=== PATIENT | female | born 1960 | race African-American/Black ===

== ENCOUNTER → 2016-04-29 | Outpatient (CLI) | payer OTHER, BC ==
[2015-12-08 12:33] VITALS: BP 121/67
[~2016-04-29] VITALS: Ht 167.6 cm; Wt 95.3 kg
[~2016-04-29] MED LIST: ATEN50TA PO; AZIT250T PO; CHOL100013 PO; HYDR12.58 PO; SINCALIDE 1.91 MCG in IV NORMAL SALINE 50ML 30 ML IV ONE; TRAM50TA PO; TRAZ100T12 PO
--- NOTE | 2016-04-29 09:57 | RAD ---
Indication chronic right upper quadrant pain. Hepatobiliary scan was performed. 5.5 mCi of technetium labeled Choletec was administered. 1.9 mcg of Kinevac was diluted in saline and administered over several minutes. Following the Kinevac administration the estimated gallbladder ejection fraction calculation was made. There is normal uptake of the radiopharmaceutical in the liver. Activity is seen early in the biliary system and gallbladder. Following the Kinevac administration the estimated gallbladder ejection fraction is in excess of 90%. IMPRESSION: Normal study
== END | disposition home or self-care (01) ==
LOC: NM 06:51
PROVIDERS: ATTEND Internal Medicine Gastroenterology
DX: R10.11 Right upper quadrant pain (principal); I10 Essential (primary) hypertension; Z86.2 Personal history of diseases of the blood and blood-forming organs and certain disorders involving the immune mechanism
CPT/HCPCS: 78226; A9537; J2805

== ENCOUNTER 2016-10-08 10:36 | Emergency (ER) | payer OTHER, BC ==
[~2016-10-08] VITALS: Ht 167.6 cm; Wt 104.3 kg
[~2016-10-08 10:36] MED LIST changes: +DOCU-109 PO; +HYDR-971 PO; -SINCALIDE 1.91 MCG in IV NORMAL SALINE 50ML 30 ML IV ONE
--- NOTE | 2016-10-08 11:09 | PHYS DOC ---
Past Medical History Past Medical History: Hypertension Past Surgical History: , Hysterectomy Additional Past Surgical Histo: cardiac cath Alcohol Use: None Drug Use: None Adult General Chief Complaint Chief Complaint: UPPER EXTREMITY PAIN HPI HPI Patient is a 56 year old female presents to the emergency department with complaints of fleeting chest pain for 5 seconds, 3 hours [employer], this morning and left upper extremity and jaw numbness. Patient denies headache. Denies nausea, vomiting. Denies diaphoresis. She states she has had pain similar to this in the past and 1 year ago had a cardiac catheter that was "clean". Review of Systems Review of Systems Constitutional: Denies fever or chills [] Eyes: Denies change in visual acuity, redness, or eye pain [] HENT: Denies nasal congestion or sore throat, left jaw pain [] Respiratory: Denies cough or shortness of breath [] Cardiovascular: Chest pain GI: Denies abdominal pain, nausea, vomiting, bloody stools or diarrhea [] : Denies dysuria or hematuria [] Musculoskeletal: left UE numbness [] Integument: Denies rash or skin lesions [] Neurologic: Denies headache, focal weakness or sensory changes [] Endocrine: Denies polyuria or polydipsia [] Current Medications Current Medications Current Medications Medications (Trade) Dose Ordered Sig/Pravin Start Time Stop Time Status Last Admin Dose Admin Aspirin (Children'S Aspirin) 324 mg 1X ONCE 10/08/16 11:45 10/08/16 11:46 DC 10/08/16 11:41 324 MG Allergies Allergies Allergies Coded Allergies Type Severity Reaction Last Updated Verified No Known Drug Allergies 05/17/16 No Physical Exam Physical Exam Constitutional: Well developed, well nourished, no acute distress, non-toxic appearance. [] HENT: Normocephalic, atraumatic, bilateral external ears normal, oropharynx moist, no oral exudates, nose normal. [] Eyes: PERRLA, EOMI, conjunctiva normal, no discharge. [] Neck: Normal range of motion, no tenderness, supple, no stridor. [] Cardiovascular:Heart rate regular rhythm, no murmur, no JVD, no edema[] Lungs & Thorax: Bilateral breath sounds clear to auscultation [] Abdomen: Bowel sounds normal, soft, no tenderness, no masses, no pulsatile masses. [] Skin: Warm, dry, no erythema, no rash. [] Back: No tenderness, no CVA tenderness. [] Extremities: No tenderness, no cyanosis, no clubbing, ROM intact, no edema. [] Neurologic: Alert and oriented X 3, normal motor function, normal sensory function, no focal deficits noted. Cranial nerves II through XII grossly intact. Negative Romberg. Psychologic: Affect normal, judgement normal, mood normal. Current Patient Data Vital Signs Vital Signs Date Time Temp Pulse Resp B/P (MAP) Pulse Ox O2 Delivery O2 Flow Rate FiO2 10/08/16 11:42 72 20 145/67 (93) 98 10/08/16 10:51 98.6 Room Air 98.6 Lab Values Laboratory Tests Test 10/08/16 11:52 10/08/16 11:55 10/08/16 12:09 POC Troponin I 0.00 ng/ml (<0.08) White Blood Count 5.6 x10^3/uL (4.0-11.0) Red Blood Count 4.16 x10^6/uL (3.50-5.40) Hemoglobin 11.8 g/dL (12.0-15.5) L Hematocrit 35.1 % (36.0-47.0) L Mean Corpuscular Volume 84 fL (79-100) Mean Corpuscular Hemoglobin 28 pg (25-35) Mean Corpuscular Hemoglobin Concent 34 g/dL (31-37) Red Cell Distribution Width 13.7 % (11.5-14.5) Platelet Count 243 x10^3/uL (140-400) Neutrophils (%) (Auto) 53 % (31-73) Lymphocytes (%) (Auto) 35 % (24-48) Monocytes (%) (Auto) 9 % (0-9) Eosinophils (%) (Auto) 3 % (0-3) Basophils (%) (Auto) 1 % (0-3) Neutrophils # (Auto) 2.9 x10^3uL (1.8-7.7) Lymphocytes # (Auto) 1.9 x10^3/uL (1.0-4.8) Monocytes # (Auto) 0.5 x10^3/uL (0.0-1.1) Eosinophils # (Auto) 0.1 x10^3/uL (0.0-0.7) Basophils # (Auto) 0.0 x10^3/uL (0.0-0.2) Sodium Level 142 mmol/L (136-145) Potassium Level 3.9 mmol/L (3.5-5.1) Chloride Level 104 mmol/L (98-107) Carbon Dioxide Level 31 mmol/L (21-32) Anion Gap 7 (6-14) Blood Urea Nitrogen 16 mg/dL (7-20) Creatinine 0.9 mg/dL (0.6-1.0) Estimated GFR (Cockcroft-Gault) 78.7 BUN/Creatinine Ratio 18 (6-20) Glucose Level 97 mg/dL (70-99) Calcium Level 9.5 mg/dL (8.5-10.1) Total Bilirubin 0.3 mg/dL (0.2-1.0) Aspartate Amino Transferase (AST) 16 U/L (15-37) Alanine Aminotransferase (ALT) 22 U/L (14-59) Alkaline Phosphatase 85 U/L (46-116) Creatine Kinase 14 U/L (26-192) L Creatine Kinase MB (Mass) 0.9 ng/mL (0.0-3.6) Creatine Kinase MB Relative Index % (0-4) Total Protein 7.3 g/dL (6.4-8.2) Albumin 3.9 g/dL (3.4-5.0) Albumin/Globulin Ratio 1.1 (1.0-1.7) Urine Collection Type Unknown Urine Color Yellow Urine Clarity Clear Urine pH 6.0 Urine Specific [place] 1.010 Urine Protein Negative mg/dL (NEG-TRACE) Urine Glucose (UA) Negative mg/dL (NEG) Urine Ketones (Stick) Negative mg/dL (NEG) Urine Blood Negative (NEG) Urine Nitrite Negative (NEG) Urine Bilirubin Negative (NEG) Urine Urobilinogen Dipstick 0.2 mg/dL (0.2 mg/dL) Urine Leukocyte Esterase Large (NEG) Urine RBC 0 /HPF (0-2) Urine WBC 20-40 /HPF (0-4) Urine Squamous Epithelial Cells Mod /LPF Urine Bacteria 0 /HPF (0-FEW) Urine Mucus Slight /LPF Laboratory Tests 10/08/16 11:55 Laboratory Tests 10/08/16 11:55 EKG EKG EKG interpreted by Dr. Fabian, no acute changes, non-STEMI [] Radiology/Procedures Radiology/Procedures [][facility] [address] [place] [address] IMAGING REPORT Signed PATIENT: DAVID GARZA ACCOUNT: [id number] : 1960 LOCATION: ER AGE: 56 SEX: F EXAM STATUS: REG ER ORD. PHYSICIAN: LIZETH RUBIN APRN REASON: chest pain PROCEDURE: CHEST PA & LATERAL 2 view CXR: Clinical indications: Chest pain and left arm pain today. Comparison: 07/25/2014. Findings: No acute lung infiltrate or pleural effusion or pulmonary edema or lung mass or pneumothorax is seen. The heart size is at the upper limits of normal and is unchanged. The pulmonary vasculature, mediastinum and both viktor are unremarkable. The osseous structures appear intact. Impression: No acute radiographic abnormality is seen. DICTATED and SIGNED BY: DOMINGO MILLS MD DATE: 10/08/16 1206 CC: TRISTON RICH MD; NON,STAFF; LIZETH RUBIN APRN ~ Course & Med Decision Making Course & Med Decision Making Pertinent Labs and Imaging studies reviewed. (See chart for details) [] Patient had no chest pain while in the emergency department she has no complaints of any symptoms in the emergency department. I did review her lab, EKG, chest x-ray results. I discussed with her the option of possible GERD or reflux. She plans to take a Pepcid [id number]. I did advise her to return to the emergency Department for new symptoms or concerns or worsening of current condition. Patient is in agreement with the plan. Dragon Disclaimer Dragon Disclaimer This electronic medical record was generated, in whole or in part, using a voice recognition dictation system. Departure Departure Impression: Primary Impression: Non-cardiac chest pain Additional Impression: Urinary tract infection Disposition: HOME, SELF-CARE Condition: STABLE Referrals: TRISTON RICH MD (PCP) Patient Instructions: Chest Contusion, [id number], Urinary Tract Infection Scripts Sulfamethoxazole/Trimethoprim (BACTRIM DS TABLET) 1 Each Tablet 1 TAB PO BID, #20 TAB Prov: LIZETH RUBIN APRN 10/08/16 Problem Qualifiers LIZETH RUBIN APRN Oct 08, 2016 11:09
[2016-10-08] MEDS ORDERED: ASPIRIN CHEWABLE 81 MG TABLET. PO ONE (11:45)
--- NOTE | 2016-10-08 12:10 | RAD ---
2 view CXR: Clinical indications: Chest pain and left arm pain today. Comparison: 07/25/2014. Findings: No acute lung infiltrate or pleural effusion or pulmonary edema or lung mass or pneumothorax is seen. The heart size is at the upper limits of normal and is unchanged. The pulmonary vasculature, mediastinum and both viktor are unremarkable. The osseous structures appear intact. Impression: No acute radiographic abnormality is seen.
[2016-10-08 12:21] LABS: BILIRUBIN,URINE NEGATIVE (NEG); GLUCOSE,URINE NEGATIVE (NEG); NITRITE,URINE NEGATIVE (NEG); PROTEIN,URINE NEGATIVE (NEG-TRACE); UROBILINOGEN,URINE 0.2 mg/dL (0.2 mg/dL)
[2016-10-08 12:22] LABS: BASO % 1 % (0-3); EOS % 3 % (0-3); HEMATOCRIT 35.1 % (36.0-47.0); HEMOGLOBIN 11.8 g/dL (12.0-15.5); LYMPH # 1.9 x10^3/uL (1.0-4.8); LYMPH % 35 % (24-48); MEAN CORPUSCULAR HEMOGLOBIN 28 pg (25-35); MEAN CORPUSCULAR HGB CONC 34 g/dL (31-37); MEAN CORPUSCULAR VOLUME 84 fL (79-100); MONO % 9 % (0-9); NEUT % 53 % (31-73); PLATELET COUNT 243 x10^3/uL (140-400); RED BLOOD COUNT 4.16 x10^6/uL (3.50-5.40); RED CELL DISTRIBUTION WIDTH 13.7 % (11.5-14.5); WHITE BLOOD COUNT 5.6 x10^3/uL (4.0-11.0)
[2016-10-08 12:30] LABS: CALCIUM 9.5 mg/dL (8.5-10.1); CREATININE 0.9 mg/dL (0.6-1.0); GFR 78.7; POTASSIUM 3.9 mmol/L (3.5-5.1)
[2016-10-08 12:41] LABS: BACTERIA,URINE 0 /HPF (0-FEW); RBC,URINE 0 /HPF (0-2); SQUAMOUS EPITHELIAL CELL,UR MOD /LPF; WBC,URINE 20-40 /HPF (0-4)
[2016-10-08 12:41] LABS: ALBUMIN 3.9 g/dL (3.4-5.0); ALBUMIN/GLOBULIN RATIO 1.1 (1.0-1.7); TOTAL BILIRUBIN 0.3 mg/dL (0.2-1.0); TOTAL PROTEIN 7.3 g/dL (6.4-8.2)
[2016-10-08 12:42] LABS: CKMB MASS 0.9 ng/mL (0.0-3.6); CREATINE KINASE 14 U/L (26-192)
[2016-10-08 12:47] VITALS: BP 144/83
[2016-10-08] MEDS ORDERED: SULF1TAB24 PO (13:05)
--- NOTE | 2016-10-08 16:16 | EKG ---
[facility] [address] [place] [address] Test Date: 2016-10-08 Test Time: 10:55:14 Pat Name: DAVID GARZA Department: Room: Gender: F Flight Director: : 1960 Requested By: LIZETH RUBIN Order Number: [id number] Reading MD: Mary Ellen Leyva Measurements Intervals [place] Rate: 59 P: 47 DE: 182 QRS: 3 QRSD: 78 T: 16 QT: 412 QTc: 408 Interpretive Statements SINUS RHYTHM NO SPECIFIC ECG ABNORMALITIES RI6.01 Compared to ECG 05/27/2014 22:40:24 No significant changes Electronically Signed On 10-11-2016 20:59:59 CDT by Mary Ellen Leyva
== END 2016-10-08 13:09 | disposition home or self-care (01) ==
LOC: ER 10:36
DX: R07.89 Other chest pain (principal); I10 Essential (primary) hypertension; Z90.710 Acquired absence of both cervix and uterus; Z98.890 Other specified postprocedural states; Z79.82 Long term (current) use of aspirin
CPT/HCPCS: 36415; 71020; 80053; 81001; 82553; 84484; 85027; 93005; 99285-25

== ENCOUNTER → 2016-10-11 | Outpatient (CLI) | payer OTHER, BC ==
[2016-10-08 12:47] VITALS: BP 144/83
[~2016-10-11] MED LIST changes: +SULF1TAB24 PO
[2016-10-11 07:37] LABS: BASO % 1 % (0-3); EOS % 3 % (0-3); HEMATOCRIT 36.4 % (36.0-47.0); HEMOGLOBIN 11.7 g/dL (12.0-15.5); LYMPH # 1.9 x10^3/uL (1.0-4.8); LYMPH % 32 % (24-48); MEAN CORPUSCULAR HEMOGLOBIN 28 pg (25-35); MEAN CORPUSCULAR HGB CONC 32 g/dL (31-37); MEAN CORPUSCULAR VOLUME 86 fL (79-100); MONO % 10 % (0-9); NEUT % 55 % (31-73); PLATELET COUNT 231 x10^3/uL (140-400); RED BLOOD COUNT 4.24 x10^6/uL (3.50-5.40); RED CELL DISTRIBUTION WIDTH 13.7 % (11.5-14.5); WHITE BLOOD COUNT 5.8 x10^3/uL (4.0-11.0)
[2016-10-11 08:03] LABS: ALBUMIN/GLOBULIN RATIO 1.1 (1.0-1.7); CALCIUM 9.3 mg/dL (8.5-10.1); CREATININE 1.1 mg/dL (0.6-1.0); GFR 62.4; POTASSIUM 3.7 mmol/L (3.5-5.1); TOTAL BILIRUBIN 0.4 mg/dL (0.2-1.0); TOTAL PROTEIN 7.6 g/dL (6.4-8.2)
[2016-10-11 08:05] LABS: CHOLESTEROL/HDL RATIO 7.6
== END | disposition home or self-care (01) ==
LOC: LAB 07:04
PROVIDERS: ATTEND Nurse Practitioner
DX: E55.9 Vitamin D deficiency, unspecified (principal)
CPT/HCPCS: 36415; 80053; 80061; 82306; 85027

== ENCOUNTER → 2016-10-16 | Outpatient (CLI) | payer OTHER, BC ==
[2016-10-08 12:47] VITALS: BP 144/83
--- NOTE | 2016-10-16 15:35 | RAD ---
Indication left arm face and arm weakness. TIA versus CVA Grayscale color Doppler and spectral analysis was performed. The examination was targeted to the carotid bifurcations. On the right there is no significant plaquing. The color Doppler images do not suggest significant turbulence. The common carotid waveform and velocities are normal. The internal carotid waveform and velocities are also normal. The external carotid has a normal appearance. The vertebral is patent and demonstrates normal antegrade flow. On the left there is no significant plaquing. The color Doppler images do not suggest significant turbulence. The common carotid waveform and velocities are normal. The internal carotid waveform and velocities are also normal. The external carotid has a normal appearance. The vertebral is patent and demonstrates normal antegrade flow. IMPRESSION: No evidence of hemodynamically significant stenosis at either carotid bifurcation. Stenosis 0-50%. Note: Stenosis calculations for CT, MR and conventional angiography are based upon determination of the distal ICA diameter in accordance with the NASCET methodology. Stenosis calculations for doppler studies are derived from validated velocity criteria which are known to correlate with NASCET methodology of determining stenosis.
== END | disposition home or self-care (01) ==
LOC: US 07:22
PROVIDERS: ATTEND Nurse Practitioner
DX: I65.23 Occlusion and stenosis of bilateral carotid arteries (principal); M79.601 Pain in right arm; R53.1 Weakness
CPT/HCPCS: 93880

== ENCOUNTER 2016-12-26 11:12 | Emergency (ER) | payer OTHER, BC ==
[~2016-12-26] VITALS: Ht 167.6 cm; Wt 102.1 kg
--- NOTE | 2016-12-26 11:53 | PHYS DOC ---
Past Medical History Past Medical History: Hypertension Past Surgical History: , Hysterectomy Additional Past Surgical Histo: cardiac cath Alcohol Use: None Drug Use: None Adult General Chief Complaint Chief Complaint: NOSEBLEED HPI HPI Patient is a 56 year old female presents to the emergency department with complaints of nose bleeds and resolved. Patient states she's had multiple nosebleeds this morning. She states that they have been stopped for approximately 45 minutes. She has had an upper respiratory infection for which she is using Jenny-D. Patient denies headache, chest pain, abdominal pain, nausea, vomiting. Review of Systems Review of Systems Constitutional: Denies fever or chills [] Eyes: Denies change in visual acuity, redness, or eye pain [] HENT: Denies nasal congestion or sore throat, complaining of nosebleed [] Respiratory: Denies cough or shortness of breath [] Cardiovascular: No additional information not addressed in HPI [] GI: Denies abdominal pain, nausea, vomiting, bloody stools or diarrhea [] : Denies dysuria or hematuria [] Musculoskeletal: Denies back pain or joint pain [] Integument: Denies rash or skin lesions [] Neurologic: Denies headache, focal weakness or sensory changes [] Endocrine: Denies polyuria or polydipsia [] Allergies Allergies Allergies Coded Allergies Type Severity Reaction Last Updated Verified No Known Drug Allergies 05/17/16 No Physical Exam Physical Exam Constitutional: Well developed, well nourished, no acute distress, non-toxic appearance. [] HENT: Normocephalic, atraumatic, bilateral external ears normal, oropharynx moist, posterior pharynx without blood, no oral exudates, nose normal, no active bleed or evidence of recent bleed. [] Neck: Normal range of motion, no tenderness, supple, no stridor. [] Cardiovascular:Heart rate regular rhythm, no murmur [] Lungs & Thorax: Bilateral breath sounds clear to auscultation [] Skin: Warm, dry, no erythema, no rash. [] Extremities: No tenderness, no cyanosis, no clubbing, ROM intact, no edema. [] Neurologic: Alert and oriented X 3, normal motor function, normal sensory function, no focal deficits noted. [] EKG EKG [] Radiology/Procedures Radiology/Procedures [] Course & Med Decision Making Course & Med Decision Making Pertinent Labs and Imaging studies reviewed. (See chart for details) [] Dragon Disclaimer Dragon Disclaimer This electronic medical record was generated, in whole or in part, using a voice recognition dictation system. Departure Departure Impression: Primary Impression: Epistaxis Disposition: 01 HOME, SELF-CARE Condition: STABLE Referrals: TRISTON RICH MD (PCP) Patient Instructions: Nose Drops, Saline, [id number], Nosebleed LIZETH RUBIN APRN Dec 26, 2016 11:53
[2016-12-26 12:00] VITALS: BP 156/83
== END 2016-12-26 12:00 | disposition home or self-care (01) ==
LOC: ER 11:12
DX: R04.0 Epistaxis (principal); I10 Essential (primary) hypertension
CPT/HCPCS: 99281

== ENCOUNTER → 2017-02-20 | Outpatient (CLI) | payer OTHER, BC ==
--- NOTE | 2017-02-20 16:00 | RAD ---
MR of the left shoulder Indication: Pain with left arm radiculopathy for 6 months. Technique: Standard multiplanar sequences are obtained. Findings: Acromioclavicular joint: Mild primary osteoarthritis with mild undersurface osteophytes. Rotator cuff: Thickening and hyperintense signal of the supraspinatus and infraspinatus tendons compatible with tendinosis. Partial thickness bursal surface tearing of the supraspinatus and infraspinatus tendons, up to 50 percent deep. No full-thickness tear or retraction. Subscapularis tendinosis with mild partial tearing. No advanced rotator cuff muscle atrophy. No significant subdeltoid bursal fluid. Glenohumeral cartilage: No acute defect or advanced DJD. Fluid: No significant joint effusion. Labrum: No evidence of labral tear or para labral cyst. Biceps tendon: Intact Bones: No lesion or acute fracture. Soft tissue: No acute findings. Impression:Rotator cuff cuff tendinosis. Partial-thickness bursal surface tearing of the supraspinatus infraspinatus tendon. Mild partial subscapularis tendon tear. Electronically signed by: Malachi Mann MD (02/20/2017 3:57 PM) [id number]
== END | disposition home or self-care (01) ==
LOC: MRI 14:26
PROVIDERS: ATTEND Nurse Practitioner Gerontology
DX: M75.102 Unspecified rotator cuff tear or rupture of left shoulder, not specified as traumatic (principal); M19.012 Primary osteoarthritis, left shoulder
CPT/HCPCS: 73221

== ENCOUNTER 2017-10-14 16:26 | Emergency (ER) | payer OTHER, BC ==
[2017-10-14] MEDS ORDERED: OXYMETAZOLINE 0.05% NASAL SPRAY 30ML BOTTLE. NS (16:47)
[2017-10-14] MEDS: OXYMETAZOLINE 0.05% NASAL SPRAY 30ML BOTTLE. NS (16:49)
== END 2017-10-14 17:18 | disposition home or self-care (01) ==
LOC: ER 16:26
DX: R04.0 Epistaxis (principal); I10 Essential (primary) hypertension
CPT/HCPCS: 99282

== ENCOUNTER → 2018-04-29 | Outpatient (CLI) | payer OTHER ==
[2017-10-14 16:30] VITALS: BP 138/71
[~2018-04-29] MED LIST changes: +HYDR-3164 PO; -HYDR-971 PO; +OXYM30SP NS; +TRAZ-86 PO; -TRAZ100T12 PO
[2018-04-29 07:35] LABS: BASO % 0 % (0-3); EOS # 0.1 x10^3/uL (0.0-0.7); EOS % 3 % (0-3); HEMATOCRIT 33.5 % (36.0-47.0); HEMOGLOBIN 11.1 g/dL (12.0-15.5); LYMPH # 1.6 x10^3/uL (1.0-4.8); LYMPH % 32 % (24-48); MEAN CORPUSCULAR HEMOGLOBIN 28 pg (25-35); MEAN CORPUSCULAR HGB CONC 33 g/dL (31-37); MEAN CORPUSCULAR VOLUME 83 fL (79-100); MONO # 0.4 x10^3/uL (0.0-1.1); MONO % 8 % (0-9); NEUT # 2.8 x10^3uL (1.8-7.7); NEUT % 57 % (31-73); PLATELET COUNT 267 x10^3/uL (140-400); RED BLOOD COUNT 4.02 x10^6/uL (3.50-5.40); RED CELL DISTRIBUTION WIDTH 14.8 % (11.5-14.5); WHITE BLOOD COUNT 4.9 x10^3/uL (4.0-11.0)
[2018-04-29 08:42] LABS: ALBUMIN 3.6 g/dL (3.4-5.0); ALBUMIN/GLOBULIN RATIO 0.9 (1.0-1.7); CALCIUM 9.5 mg/dL (8.5-10.1); CREATININE 0.9 mg/dL (0.6-1.0); GFR 78.4; POTASSIUM 3.2 mmol/L (3.5-5.1); TOTAL BILIRUBIN 0.4 mg/dL (0.2-1.0); TOTAL PROTEIN 7.8 g/dL (6.4-8.2)
[2018-04-29 08:45] LABS: CHOLESTEROL/HDL RATIO 8.3
== END | disposition home or self-care (01) ==
LOC: LAB 07:17
PROVIDERS: ATTEND Nurse Practitioner
DX: I10 Essential (primary) hypertension (principal); E78.5 Hyperlipidemia, unspecified; R73.01 Impaired fasting glucose; R74.8 Abnormal levels of other serum enzymes
CPT/HCPCS: 36415; 80053; 80061; 83036; 85025

== ENCOUNTER → 2018-06-04 | Outpatient (CLI) | payer OTHER ==
[2017-10-14 16:30] VITALS: BP 138/71
[2018-06-04 15:23] LABS: POTASSIUM 3.5 mmol/L (3.5-5.1)
== END | disposition home or self-care (01) ==
LOC: LAB 14:38
PROVIDERS: ATTEND Nurse Practitioner
DX: E87.6 Hypokalemia (principal)
CPT/HCPCS: 36415; 80051

== ENCOUNTER → 2018-12-24 | Outpatient (CLI) | payer OTHER ==
[2017-10-14 16:30] VITALS: BP 138/71
[2018-12-24 07:38] LABS: BASO % 0 % (0-3); EOS # 0.1 x10^3/uL (0.0-0.7); EOS % 2 % (0-3); HEMATOCRIT 35.1 % (36.0-47.0); HEMOGLOBIN 11.5 g/dL (12.0-15.5); LYMPH # 1.6 x10^3/uL (1.0-4.8); LYMPH % 28 % (24-48); MEAN CORPUSCULAR HEMOGLOBIN 28 pg (25-35); MEAN CORPUSCULAR HGB CONC 33 g/dL (31-37); MEAN CORPUSCULAR VOLUME 85 fL (79-100); MONO # 0.5 x10^3/uL (0.0-1.1); MONO % 8 % (0-9); NEUT # 3.7 x10^3/uL (1.8-7.7); NEUT % 63 % (31-73); PLATELET COUNT 249 x10^3/uL (140-400); RED BLOOD COUNT 4.11 x10^6/uL (3.50-5.40); RED CELL DISTRIBUTION WIDTH 13.9 % (11.5-14.5); WHITE BLOOD COUNT 5.9 x10^3/uL (4.0-11.0)
[2018-12-24 07:46] LABS: BILIRUBIN,URINE NEGATIVE (NEG); CLARITY,URINE CLEAR; COLOR,URINE YELLOW; NITRITE,URINE NEGATIVE (NEG); PH,URINE 5.5; PROTEIN,URINE NEGATIVE (NEG-TRACE); UROBILINOGEN,URINE 0.2 mg/dL (0.2 mg/dL)
[2018-12-24 07:56] LABS: BACTERIA,URINE MODERATE /HPF (0-FEW); SQUAMOUS EPITHELIAL CELL,UR OCC /LPF; WBC,URINE TNTC /HPF (0-4)
[2018-12-24 07:57] LABS: RBC,URINE FOBS /HPF (0-2)
[2018-12-24 08:20] LABS: ALBUMIN 3.8 g/dL (3.4-5.0); CALCIUM 9.2 mg/dL (8.5-10.1); GFR 69.1; TOTAL BILIRUBIN 0.4 mg/dL (0.2-1.0); TOTAL PROTEIN 7.7 g/dL (6.4-8.2)
[2018-12-24 08:21] LABS: POTASSIUM 3.8 mmol/L (3.5-5.1)
[2018-12-24 08:25] LABS: CHOLESTEROL/HDL RATIO 5.8
[2018-12-25 01:08] LABS: HEMOGLOBIN A1C 5.7 % (4.8-5.6)
== END | disposition home or self-care (01) ==
LOC: LAB 06:57
PROVIDERS: ATTEND Nurse Practitioner
DX: R73.01 Impaired fasting glucose (principal); R30.0 Dysuria
CPT/HCPCS: 36415; 80053; 80061; 81001; 83036; 84443; 85025; 87086

== ENCOUNTER 2019-06-04 12:03 | Day surgery (SDC) | payer OTHER ==
[~2019-06-04] VITALS: Ht 167.6 cm; Wt 93.0 kg
[~2019-06-04 12:03] MED LIST changes: +CIPROFLOXACIN 0.3% OPHTH SOLUTION 5ML BOTTLE. OD ONE; +HYDROmorphone 2 MG/ML VIAL IV PRN; +IV RINGERS,LACTATED 1000ML 1,000 ML IV SCH; +LIDOCAINE 1% PF 2 ML VIAL. ID PRN; +LIDOCAINE 2% JELLY 6ML IN APPLICATOR. OD ONE; +MORPHINE SULFATE 2 MG/ML VIAL. IV PRN; +ONDANSETRON PF 4 MG/2 ML VIAL. IV PRN; -OXYM30SP NS; +OXYM30SP25 NS; +PROCHLORPERAZINE 10 MG/2 ML VIAL. IV PRN; +PROPARACAINE 0.5% OPHTH SOLUTION 15ML BOTTLE. OD ONE; +TRAZ-123 PO; -TRAZ-86 PO; +fentaNYL PF VIAL 100 MCG/2 ML VIAL IV PRN
[2019-06-04] MEDS: CYCLOPENTOLATE 1% OPTH SOLUTION 2ML BOTTLE. OD SCH ×3 (12:40→12:50)
[2019-06-04] MEDS: PHENYLEPHRINE 10% OPHTH SOLUTION 5ML BOTTLE. OD SCH ×3 (12:40→12:50)
[2019-06-04] MEDS ORDERED: CHONDROIT-SOD-HYALURONATE KIT. ONE (13:24)
[2019-06-04] MEDS ORDERED: ERYTHROMYCIN 0.5% OPHTH OINTMENT 1GM TUBE. ONE (13:24)
--- NOTE | 2019-06-04 14:29 | OP ---
DATE OF SURGERY: 06/04/2019 PREOPERATIVE DIAGNOSIS: Presenile cataract, right eye. POSTOPERATIVE DIAGNOSIS: Presenile cataract, right eye. PROCEDURE: Phacoemulsification with posterior chamber lens implant, right eye. ANESTHESIA: Topical with MAC. DESCRIPTION OF PROCEDURE: The patient's dilating and anesthetic drops were applied in the outpatient department and the Honan balloon cuff used for about 10-15 minutes. The patient was then brought to the operating room and positioned on the table and the right eye was prepped and draped in usual sterile manner for intraocular procedure. A lid speculum was placed between the eyelids and the operating microscope brought into position. A paracentesis incision was made superior temporally and an injection of Phenylid was injected in the anterior chamber followed by an injection of Viscoat. The 2.4 mm temporal incision was then made and a bent needle and forceps were used to perform a capsulorrhexis of about 5.5-6 mm in diameter. The lens nucleus was hydrodissected and phacoemulsified without difficulty and the remaining cortex aspirated with the I/A handpiece. The bag was then insufflated with Provisc and a posterior chamber lens placed in the bag without difficulty. The wound was hydrated and the eye pressurized. The wound was checked for leaks and there were none. The speculum and drape were removed and erythromycin ointment instilled in the conjunctival sac and the eye was shielded. The patient was taken to recovery room in satisfactory condition. There were no complications. I will see the patient in 3 days in my office. K CHIVO CHURCHILL MD DR: MILEY/marisela JOB#: [id number] / [id number]
[2019-06-04 14:36] VITALS: BP 182/89
== END 2019-06-04 14:52 | disposition home or self-care (01) ==
LOC: SURG 12:03
PROVIDERS: ATTEND Ophthalmology
DX: H25.11 Age-related nuclear cataract, right eye (principal); I10 Essential (primary) hypertension; E78.00 Pure hypercholesterolemia, unspecified; J45.909 Unspecified asthma, uncomplicated; E66.9 Obesity, unspecified; Z68.33 Body mass index [BMI] 33.0-33.9, adult; Z86.19 Personal history of other infectious and parasitic diseases; Z86.010 Personal history of colon polyps; Z90.49 Acquired absence of other specified parts of digestive tract; Z98.41 Cataract extraction status, right eye; Z90.710 Acquired absence of both cervix and uterus; Z98.51 Tubal ligation status; Z96.1 Presence of intraocular lens
CPT/HCPCS: 66984; C1780; J0171

== ENCOUNTER → 2019-06-11 | Day surgery (SDC) | payer OTHER ==
[~2019-06-11] MED LIST changes: +CHONDROIT-SOD-HYALURONATE KIT. ONE; -CIPROFLOXACIN 0.3% OPHTH SOLUTION 5ML BOTTLE. OD ONE; +CIPROFLOXACIN 0.3% OPHTH SOLUTION 5ML BOTTLE. OS ONE; +CYCLOPENTOLATE 1% OPTH SOLUTION 2ML BOTTLE. OS SCH; +ERYTHROMYCIN 0.5% OPHTH OINTMENT 1GM TUBE. ONE; -LIDOCAINE 1% PF 2 ML VIAL. ID PRN; +LIDOCAINE 1% PF 2 ML VIAL. ONE; -LIDOCAINE 2% JELLY 6ML IN APPLICATOR. OD ONE; +LIDOCAINE 2% JELLY 6ML IN APPLICATOR. OS ONE; +PHENYLEPHRINE 10% OPHTH SOLUTION 5ML BOTTLE. OS SCH; -PROPARACAINE 0.5% OPHTH SOLUTION 15ML BOTTLE. OD ONE; +PROPARACAINE 0.5% OPHTH SOLUTION 15ML BOTTLE. OS ONE
[2019-06-11] MEDS: CYCLOPENTOLATE 1% OPTH SOLUTION 2ML BOTTLE. OS SCH ×3 (11:50→12:00)
[2019-06-11] MEDS: PHENYLEPHRINE 10% OPHTH SOLUTION 5ML BOTTLE. OS SCH ×3 (11:50→12:00)
--- NOTE | 2019-06-11 12:55 | OP ---
DATE OF SURGERY: 06/11/2019 PREOPERATIVE DIAGNOSIS: Significant nuclear and cortical cataract of the left eye. POSTOPERATIVE DIAGNOSIS: Significant nuclear and cortical cataract of the left eye. PROCEDURE: Phacoemulsification with posterior chamber lens implant, left eye. ANESTHESIA: Topical with MAC. DESCRIPTION OF PROCEDURE: The patient's dilating and anesthetic drops were applied in the holding room and the Honan balloon cuff used for about 10-15 minutes. The patient was then brought to the operating room and positioned on the table and the left eye was prepped and draped in usual sterile manner for an intraocular procedure. A speculum was placed between the eyelids and the operating microscope brought into position. A paracentesis incision was made inferior temporally and Phenylid was injected in the anterior chamber followed by an injection of Viscoat. The 2.4 mm incision was made temporally at that time point. A bent needle and forceps were used to make a capsulorrhexis about the dilated pupillary border and the lens nucleus hydrodissected. The lens nucleus was then phacoemulsified without difficulty and the remaining cortex aspirated with the I/A handpiece. The bag was insufflated with Provisc and a posterior chamber lens placed into the bag without difficulty. The Provisc was aspirated with the I/A handpiece and the wound was hydrated. The eye was pressurized and the wound checked for leaks and there were none. The speculum and drape were removed and Maxitrol ointment instilled in the conjunctival sac. The eye was shielded and the patient was taken to recovery room in satisfactory condition. There were no complications and I will see the patient in 3 days in my office. K CHIVO CHURCHILL MD DR: MILEY/marisela JOB#: [id number] / [id number]
[2019-06-11 13:04] VITALS: BP 149/91
== END ==
LOC: SURG 11:11
PROVIDERS: ATTEND Ophthalmology
DX: H25.012 Cortical age-related cataract, left eye (principal)
CPT/HCPCS: 66982; C1780; J0171; J3490

== ENCOUNTER → 2019-11-02 | Outpatient (CLI) | payer OTHER ==
[2019-06-11 13:04] VITALS: BP 149/91
[~2019-11-02] MED LIST changes: -CHONDROIT-SOD-HYALURONATE KIT. ONE; -CIPROFLOXACIN 0.3% OPHTH SOLUTION 5ML BOTTLE. OS ONE; -CYCLOPENTOLATE 1% OPTH SOLUTION 2ML BOTTLE. OS SCH; -ERYTHROMYCIN 0.5% OPHTH OINTMENT 1GM TUBE. ONE; -HYDROmorphone 2 MG/ML VIAL IV PRN; -IV RINGERS,LACTATED 1000ML 1,000 ML IV SCH; -LIDOCAINE 1% PF 2 ML VIAL. ONE; -LIDOCAINE 2% JELLY 6ML IN APPLICATOR. OS ONE; -MORPHINE SULFATE 2 MG/ML VIAL. IV PRN; -ONDANSETRON PF 4 MG/2 ML VIAL. IV PRN; -PHENYLEPHRINE 10% OPHTH SOLUTION 5ML BOTTLE. OS SCH; -PROCHLORPERAZINE 10 MG/2 ML VIAL. IV PRN; -PROPARACAINE 0.5% OPHTH SOLUTION 15ML BOTTLE. OS ONE; -fentaNYL PF VIAL 100 MCG/2 ML VIAL IV PRN
[2019-11-02 08:43] LABS: BASO % 0 % (0-3); EOS # 0.1 x10^3/uL (0.0-0.7); EOS % 2 % (0-3); HEMATOCRIT 35.4 % (36.0-47.0); HEMOGLOBIN 11.6 g/dL (12.0-15.5); LYMPH # 1.3 x10^3/uL (1.0-4.8); LYMPH % 25 % (24-48); MEAN CORPUSCULAR HEMOGLOBIN 28 pg (25-35); MEAN CORPUSCULAR HGB CONC 33 g/dL (31-37); MEAN CORPUSCULAR VOLUME 86 fL (79-100); MONO # 0.4 x10^3/uL (0.0-1.1); MONO % 8 % (0-9); NEUT # 3.5 x10^3/uL (1.8-7.7); NEUT % 64 % (31-73); PLATELET COUNT 257 x10^3/uL (140-400); RED BLOOD COUNT 4.14 x10^6/uL (3.50-5.40); RED CELL DISTRIBUTION WIDTH 14.2 % (11.5-14.5); WHITE BLOOD COUNT 5.4 x10^3/uL (4.0-11.0)
[2019-11-02 08:48] LABS: ALBUMIN 3.7 g/dL (3.4-5.0); CALCIUM 8.9 mg/dL (8.5-10.1); GFR 68.9; POTASSIUM 3.7 mmol/L (3.5-5.1); TOTAL BILIRUBIN 0.3 mg/dL (0.2-1.0); TOTAL PROTEIN 7.4 g/dL (6.4-8.2)
[2019-11-02 08:50] LABS: CHOLESTEROL/HDL RATIO 7.3
[2019-11-03 02:09] LABS: HEMOGLOBIN A1C 5.8 % (4.8-5.6)
== END | disposition home or self-care (01) ==
LOC: LAB 07:14
PROVIDERS: ATTEND Nurse Practitioner
DX: E78.5 Hyperlipidemia, unspecified (principal); R74.8 Abnormal levels of other serum enzymes; I10 Essential (primary) hypertension; B19.20 Unspecified viral hepatitis C without hepatic coma
CPT/HCPCS: 36415; 80053; 80061; 83036; 84443; 85025

== ENCOUNTER → 2019-11-02 | Outpatient (CLI) | payer OTHER ==
[2019-06-11 13:04] VITALS: BP 149/91
--- NOTE | 2019-11-02 15:34 | RAD ---
EXAM: KNEE LEFT 2V, KNEE STANDING BILAT AP. HISTORY: Fall, left knee pain. COMPARISON: None. FINDINGS: On the right, there our small osteophytes along the medial compartment. Joint spaces appear preserved. No fractures are identified. On the left, there are small osteophytes along all 3 compartments. Joint spaces appear preserved. There is no joint effusion. Alignment is maintained. No fractures are identified. IMPRESSION: 1. 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 Electronically signed by: Jaimie Edwards MD (11/02/2019 3:31 PM) [id number]
--- NOTE | 2019-11-02 16:53 | RAD ---
THORACIC SPINE 3V 11/02/2019 12:00 AM INDICATION: Left knee pain. Acute left-sided thoracic back pain. COMPARISON: None available. TECHNIQUE: 3 views of the thoracic spine are provided. FINDINGS/ IMPRESSION: There is mild S-shaped curvature of the thoracic spine with apex dextrocurvature at T8-T9 and apex levocurvature at T11 T10. No acute fracture or sagittal malalignment. Mild anterior marginal osteophytosis. Cardiomediastinal silhouette is within normal limits. No pulmonary vascular congestion or pneumothorax. Cholecystectomy changes are present. Mild degenerative changes are identified within the lower lobes cervical spine with minimal retrolisthesis of C5 on C6. Electronically signed by: Liv Escobar MD (11/02/2019 4:50 PM) [id number]
== END | disposition home or self-care (01) ==
LOC: RAD 07:19
PROVIDERS: ATTEND Nurse Practitioner Gerontology
DX: M17.12 Unilateral primary osteoarthritis, left knee (principal); M25.762 Osteophyte, left knee; M25.78 Osteophyte, vertebrae; M43.8X4 Other specified deforming dorsopathies, thoracic region; M47.812 Spondylosis without myelopathy or radiculopathy, cervical region; M43.12 Spondylolisthesis, cervical region; Z90.49 Acquired absence of other specified parts of digestive tract
CPT/HCPCS: 72072; 73560; 73565

== ENCOUNTER → 2019-11-19 | Outpatient (CLI) | payer OTHER ==
[2019-06-11 13:04] VITALS: BP 149/91
--- NOTE | 2019-11-19 16:44 | RAD ---
MRI Thoracic Spine without contrast History: Mid back pain to the left side for 10 months Technique: Multiplanar, multi sequential noncontrast MR imaging was performed of the thoracic spine. Comparison: None Findings: There is some motion degradation. There is nonspecific somewhat heterogeneous appearance of the marrow, not associated with significant focal marrow edema. Thoracic vertebral body stature and AP alignment are maintained. There is hemangioma of the right T3 vertebral body. There is multilevel mild disc desiccation, intervertebral disc spaces relatively preserved. Thoracic cord caliber is within normal limits without defined or expansile signal change, limited evaluation for subtle signal change due to motion. There is no significant focal posterior disc abnormality of the thoracic spine. There is no significant thoracic spinal stenosis at any level. Facet degenerative change contributes to [id number] narrowing of the left T8-9 neural foramen, minimal narrowing on the left at T7-8 and T4-5 and on the right at T4-5, T8-9, T9-10. Impression: 1. There is no significant thoracic spinal stenosis. There is [id number] narrowing of the left T8-9 neural foramen by facet degenerative change, other minimal narrowing as stated. Electronically signed by: Ronak Castorena MD (11/19/2019 4:42 PM) [id number]
== END ==
LOC: MRI 15:13
PROVIDERS: ATTEND Nurse Practitioner Gerontology
DX: M47.814 Spondylosis without myelopathy or radiculopathy, thoracic region (principal)
CPT/HCPCS: 72146

== ENCOUNTER → 2020-01-21 | Outpatient (CLI) | payer OTHER ==
[2019-06-11 13:04] VITALS: BP 149/91
--- NOTE | 2020-01-21 16:19 | RAD ---
Bilateral lower extremity arterial Doppler dated 01/21/2020. No comparison available. CLINICAL INDICATION: Nonpalpable pulses cramping in legs. FINDINGS: Grayscale, color-flow and spectral waveform analysis performed to include the arterial tree of both lower extremity. There is biphasic to triphasic waveforms throughout. No significant atherosclerotic plaquing on the grayscale images. No focal stenosis. The velocity measurements are within the range of normal. IMPRESSION: No evidence of hemodynamically significant lower extremity arterial stenosis. Electronically signed by: Malachi Madrigal MD (01/21/2020 4:17 PM) [email or web address]
== END ==
LOC: US 15:08
PROVIDERS: ATTEND Podiatrist
DX: R09.89 Other specified symptoms and signs involving the circulatory and respiratory systems (principal); R25.2 Cramp and spasm
CPT/HCPCS: 93925

== ENCOUNTER → 2020-02-17 | Outpatient (CLI) | payer OTHER ==
[2019-06-11 13:04] VITALS: BP 149/91
--- NOTE | 2020-02-17 15:39 | RAD ---
EXAM: 3 views of the left ankle DATE: 02/17/2020 12:00 AM INDICATION: Reason: LEFT HAND PAIN. / Spl. Instructions: / History: COMPARISON: No Prior FINDINGS: No acute fracture or dislocation. Fifth metacarpal deformity likely from old/healed fracture. Ankle mortise is congruent. Talar dome is intact. Thumb CMC joint degenerative changes are seen. No significant soft tissue swelling. IMPRESSION: No acute fracture or dislocation. Basilar thumb osteoarthritis Electronically signed by: Enrrique Phan MD (02/17/2020 3:36 PM) [id number]
== END ==
LOC: RAD 14:49
PROVIDERS: ATTEND Nurse Practitioner Gerontology
DX: M19.042 Primary osteoarthritis, left hand (principal); M21.832 Other specified acquired deformities of left forearm
CPT/HCPCS: 73130

== ENCOUNTER → 2020-04-05 | Outpatient (CLI) | payer OTHER ==
[2019-06-11 13:04] VITALS: BP 149/91
[~2020-04-05] MED LIST changes: +IOHEXOL 180 MG/ML 10 ML VIAL. ONE; +OXYC1TAB15 PO; +TOPI25TA7 PO; +methylPREDNISolone ACETATE 40 MG/ML VIAL. ONE; +methylPREDNISolone ACETATE 80 MG/ML VIAL. ONE
--- NOTE | 2020-04-05 12:45 | PDOC ---
Progress Note - Pain Clinic Date of Service: DOS: DATE: 04/05/20 TIME: 12:41 Diagnosis: Dx: Thoracic radiculopathy with thoracic degenerative disc disease History or Present Illness: HPI: 59-year-old female returns for follow-up status post initial evaluation and returns for a thoracic epidural steroid injection today. Patient reports still significant pain in the mid to lower back rating to the left side of the thoracic distribution as previously patient reports no new motor or sensory deficits still some left flank pain with walking standing moving changing positions patient ports it wakes her from sleep about once every 7-8 hours reports it is a 8 on a scale 10 is worse over the past week 6 on average 2 at its least is a 6 today. Patient described pain as aching tight shooting radiating on and off in intensity better with sitting or resting and laying down but again is waking her from sleep. Patient reports no new motor or sensory deficits no new bowel or bladder incontinence or other complaints. Physical Exam: VS: Blood pressure is 151/91 pulse 79 respirations are 20 temperature is 98.8 F height is 5 feet 6 inches weight is 220 pounds PE: PHYSICAL EXAMINATION: GENERAL: The patient is awake, alert, oriented, appropriate, very pleasant demeanor HEENT: Shows normocephalic, atraumatic. Extraocular movements are intact and symmetrical. Oral cavity: Mucous membranes moist and pink. NECK: Shows anterior throat supple without palpable lymphadenopathy noted. Swallow reflex symmetrical. CHEST: Shows normal on inspection. Breath sounds are clear bilaterally. HEART: Shows S1, S2 clear. No murmurs auscultated. ABDOMEN: Soft, nontender, nondistended, obese. No palpable organomegaly is noted. No rebound or guarding demonstrated. BACK: Shows spine grossly in the midline. Normal-appearing cervical lordotic curvature. There is slightly increased thoracic kyphosis, some minor flattening of the lumbar lordotic curvature. Lower thoracic spine shows paraspinous posterior symmetrical with palpation some moderate tenderness diffusely more on the left than the right in the middle lower distribution thoracic paraspinous musculature without trigger points without atrophy or asymmetry no tenderness over the spinous processes, sacrum or sacroiliac regions. EXTREMITIES: Lower extremities show deep tendon reflexes 2+ in the patellar and tendo calcaneus tendons. Motor exam is 5 on a scale of 5 with right dorsiflexion, extension, quadriceps and hamstring flexion and 5/5 on the left. Peripheral pulses are 1+ posterior tibial. No peripheral edema is noted bilaterally. Lower extremities are warm and dry to touch, equal in color and appearance.. SKIN: Shows warm and dry, good turgor. No edema. No sores, rashes or bruising throughout. Procedure: Procedure: Options were discussed with the patient. Patient will chart reviews her current medication regimen updated current review of systems updated today as well. We will proceed with a thoracic epidural steroid injection today with fluoroscopic guidance. Risks were discussed including but not limited to: Bleeding, infection, possibility of epidural hematoma and subsequent neurological compromise, dural puncture, headaches, spinal cord and/or nerve damage, side effects of steroid medication, and poor results regarding pain control. Patient understands wished to proceed. Patient will return to clinic in approximate 2 weeks for follow-up, was counseled as to return appointment activity level, and side effects to be aware of. Medication Injected: Med Injected: Procedure is thoracic epidural steroid injection under local anesthetic using sterile prep and drape at the T9-10 level using C-arm fluoroscopic guidance in both AP and lateral views medications injected is 120 mg Depo-Medrol + 10 mL preservative-free normal saline and 2 mL contrast- condition at discharge is stable patient tolerated procedure well had no complications. Condition at Discharge: Condition at Discharge: Condition at discharge stable, patient tolerated procedure well and had no complications. NADER KOEHLER MD Apr 05, 2020 12:45
== END | disposition home or self-care (01) ==
LOC: PNCL 12:11
PROVIDERS: ATTEND Anesthesiology
DX: M51.14 Intervertebral disc disorders with radiculopathy, thoracic region (principal); Z98.890 Other specified postprocedural states
CPT/HCPCS: 62321; J1030; J1040; Q9965

== ENCOUNTER → 2020-07-03 | Outpatient (CLI) | payer OTHER ==
[2019-06-11 13:04] VITALS: BP 149/91
[~2020-07-03] MED LIST changes: -OXYC1TAB15 PO; -TOPI25TA7 PO
--- NOTE | 2020-07-03 10:02 | PDOC ---
Progress Note - Pain Clinic Date of Service: DOS: DATE: 07/03/20 TIME: 09:58 Diagnosis: Dx: Thoracic radiculopathy with thoracic degenerative disc disease History or Present Illness: HPI: 59-year-old female returns follow-up status post thoracic epidural to injection x1. Last seen April 05, 2020 patient did very well for about 3 months with pain reduced by about 80% or so patient reports pain returning down the low back mid back and left side of the flank and rib cage worse with deep breathing repetitive motions bending and stooping patient reports is a 9 on scale 10 is worse over the past week 8 on average 5 its least and is a 7 today. Reports aching sharp tight radiating at times on and off in intensity better with sitting or laying down generally is not awakening her from sleep at night. Patient reports no new motor or sensory deficits no new bowel or bladder incontinence or other complaints. Physical Exam: VS: Blood pressure is 140/83 pulse 63 respiration 16 temperature 98.3 F weight is 218 pounds PE: PHYSICAL EXAMINATION: GENERAL: The patient is awake, alert, oriented, appropriate, very pleasant demeanor HEENT: Shows normocephalic, atraumatic. Extraocular movements are intact and symmetrical. Oral cavity: Mucous membranes moist and pink. Dentition is intact. NECK: Shows anterior throat supple without palpable lymphadenopathy noted. Swallow reflex symmetrical. CHEST: Shows normal on inspection. Breath sounds are clear bilaterally, no rales rhonchi or wheezes auscultated. HEART: Shows S1, S2 clear. No murmurs auscultated. ABDOMEN: Soft, nontender, nondistended, obese. No palpable organomegaly is noted. BACK: Shows spine grossly in the midline. Normal-appearing cervical lordotic curvature. There is slightly increased thoracic kyphosis, some minor flattening of the lumbar lordotic curvature. Thoracic paraspinous muscles show symmetrical on inspection with palpation some mild tenderness on the left compared to the right but no asymmetry no atrophy hypertrophy and no radiation of pain. Patient shows good rotation motion of the thoracic spine both laterally as well as full extension full forward flexion without significant increase in pain. Lumbar paraspinous muscles show symmetrical on inspection, on palpation shows some moderate tenderness diffusely throughout the upper, middle and lower distribution of the paraspinous muscles without specific trigger points, without radiation of pain. EXTREMITIES: Lower extremities show deep tendon reflexes 2+ in the patellar and tendo calcaneus tendons. Motor exam is 5 on a scale of 5 with right dorsiflexion, extension, quadriceps and hamstring flexion and []/5 on the left. Peripheral pulses are 1+ posterior tibial. No peripheral edema is noted bilaterally. Lower extremities are warm and dry to touch, equal in color and appearance. SKIN: Shows warm and dry, good turgor. No edema. No sores, rashes or bruising throughout. Procedure: Procedure: Discussed with the patient. Patient chart reviews her current medication regimen updated current review of systems updated today as well. We will proceed with a second in the series thoracic epidural steroid injection today with fluoroscopic guidance. Risks were discussed including but not limited to: Bleeding, infection, possibility of epidural hematoma and subsequent neurological compromise, dural puncture, headaches, spinal cord and/or nerve damage, side effects of steroid medication, and poor results regarding pain control. Patient understands and wished to proceed. Patient will return to the clinic in approximate 2 weeks for follow-up, was counseled as to return appointment activity level and side effects to be aware of. Medication Injected: Med Injected: Procedure is thoracic epidural steroid injection under local anesthetic using sterile prep and drape at the T9-10 level using C-arm fluoroscopic guidance in both AP and lateral views medications injected is 120 mg Depo-Medrol + 10 mL preservative-free normal saline and 2 mL contrast- condition at discharge is stable patient tolerated procedure well had no complications. Condition at Discharge: Condition at Discharge: Condition at discharge stable, patient already procedure well and had no complications. NADER KOEHLER MD Jul 03, 2020 10:02
--- NOTE | 2020-07-03 10:02 | PDOC4 ---
PROCEDURE Procedure Patient was consented for thoracic epidural steroid injection. Risks were d iscussed including but not limited to: Bleeding, infection, possibility of epidural hematoma and subsequent neurological compromise, dural puncture, headaches, spinal cord and/or nerve damage, side effects of steroid medication, and poor results regarding pain control. Patient understands and wished to proceed. Procedure is thoracic epidural steroid injection under local anesthetic using sterile prep and drape at the T9-10 level using C-arm fluoroscopic guidance in both AP and lateral views medications injected is 120 mg Depo-Medrol + 10 mL preservative-free normal saline and 2 mL contrast- condition at discharge is stable patient tolerated procedure well had no complications. NADER KOEHLER MD Jul 03, 2020 10:02
== END | disposition home or self-care (01) ==
LOC: PNCL 09:02
PROVIDERS: ATTEND Anesthesiology
DX: M51.14 Intervertebral disc disorders with radiculopathy, thoracic region (principal); I10 Essential (primary) hypertension; E78.00 Pure hypercholesterolemia, unspecified; J45.909 Unspecified asthma, uncomplicated; E66.9 Obesity, unspecified; Z90.49 Acquired absence of other specified parts of digestive tract; Z90.710 Acquired absence of both cervix and uterus; Z98.890 Other specified postprocedural states; Z79.899 Other long term (current) drug therapy; Z98.51 Tubal ligation status
CPT/HCPCS: 62321; J1030; J1040; Q9965; 77002

== ENCOUNTER → 2020-08-22 | Outpatient (CLI) | payer OTHER ==
[2019-06-11 13:04] VITALS: BP 149/91
[~2020-08-22] MED LIST changes: +CONTRAST GIVEN. MC PRN; -IOHEXOL 180 MG/ML 10 ML VIAL. ONE; +IOHEXOL 240 MG/ML 50ML VIAL. PO ONE; +IOHEXOL 300 MG/ML 100ML VIAL. IV ONE; +TOPI25TA7 PO; -methylPREDNISolone ACETATE 40 MG/ML VIAL. ONE; -methylPREDNISolone ACETATE 80 MG/ML VIAL. ONE
--- NOTE | 2020-08-22 09:48 | RAD ---
EXAMINATION: CT abdomen and pelvis with IV contrast. INDICATION: Diffuse abdominal pain. TECHNIQUE: Axial CT images of the abdomen and pelvis were obtained. Coronal and sagittal reformatted performed. COMPARISON: None or significant atelectasis versus scarring in the lingula.. Exposure: One or more of the following individualized dose reduction techniques were utilized for thi s examination: 1. Automated exposure control 2. Adjustment of the mA and/or kV according to patient size 3. Use of iterative reconstruction technique. FINDINGS: LOWER CHEST: Subsegmental atelectasis in the lingula. ABDOMEN/PELVIS: Liver is unremarkable. Subcentimeter hypodense lesion in subcapsular spleen, too small to characteriz e, statistically representing cyst. Mildly atrophic pancreas. Cholecystectomy. No biliary ductal dila tion. No adrenal nodule. Both kidneys demonstrate normal symmetric enhancement with no hydronephrosis or nephrolithiasis. No bowel obstruction or wall thickening. Normal appendix. No pneumoperitoneum or ascites. Mild aortoiliac atherosclerotic calcifications. Focal ectasia of the infrarenal abdominal a robert measures up to 2.5 cm in diameter. Mesenteric arteries and portal vein are patent. No lymphadeno apoorva in the abdomen or pelvis by size criteria. Underdistended urinary bladder which limits evaluati on. Hysterectomy changes. No suspicious adnexal masses. MUSCULOSKELETAL: Small fat-containing periumbilical and bilateral inguinal hernias. No acute osseous process or suspic ious lesion. IMPRESSION: 1. No acute abnormality in the abdomen or pelvis. 2. Other chronic/incidental findings, as described above. Electronically signed by: Santa Thao MD (08/22/2020 9:46 AM) [id number]
== END ==
LOC: CT 07:01
PROVIDERS: ATTEND Internal Medicine Gastroenterology
DX: K40.20 Bilateral inguinal hernia, without obstruction or gangrene, not specified as recurrent (principal); K86.89 Other specified diseases of pancreas; Z90.49 Acquired absence of other specified parts of digestive tract
CPT/HCPCS: 74177; Q9966; Q9967

== ENCOUNTER → 2020-08-23 | Day surgery (SDC) | payer OTHER ==
[~2020-08-23] MED LIST changes: -CONTRAST GIVEN. MC PRN; -IOHEXOL 240 MG/ML 50ML VIAL. PO ONE; -IOHEXOL 300 MG/ML 100ML VIAL. IV ONE; +IV RINGERS,LACTATED 1000ML 1,000 ML IV SCH; +LIDOCAINE 2% PF 5 ML VIAL. ONE; +PROPOFOL 10 MG/ML (20ML) VIAL. IV ONE
[2020-08-23 08:23] VITALS: BP 103/62
--- NOTE | 2020-08-26 02:12 | PATHOLOGY ---
[facility] Accession Number: [id number] . 01 Material submitted: . sigmoid colon - SIGMOID COLON POLYP . 01 Clinical history: . HX POLYPS . 02 Diagnosis: "Sigmoid polyp", biopsy: - Hyperplastic polyp. (CL[facility]; 08/25/2020) S 08/25/2020 1449 Local . 02 Electronically signed: . Lisa Lu MD, Pathologist NPI- [id number] . 01 Gross description: . The specimen is received in formalin, labeled "Starr, Nichel", "sigmoid polyp". Received are multiple segments of pale voss soft tissue ranging in size from 0.1 cm to 0.2 cm. The specimen is entirely submitted in cassette A1.([facility]; 08/24/2020) WILL/THOMAS 08/24/2020 0942 Local . 02 Pathologist provided ICD-10: K63.5 . 02 CPT . 923066 Specimen Comment: A courtesy copy of this report has been sent to [phone], [phone] Specimen Comment: [id number] Specimen Comment: Report sent to / DR GARCIA Performed at: [address] [facility] [address], [place], [place] [id number] MD Marquise Ortzi MD Phone: [phone] Performed at: 02 [facility] [place] [id number] [place] [id number] MD Lisa Lu MD Phone: [phone]
== END | disposition home or self-care (01) ==
LOC: ENDOS 06:35
PROVIDERS: ATTEND Internal Medicine Gastroenterology
DX: R19.7 Diarrhea, unspecified (principal); R10.9 Unspecified abdominal pain; K63.5 Polyp of colon; K64.0 First degree hemorrhoids; I10 Essential (primary) hypertension; E78.00 Pure hypercholesterolemia, unspecified; J45.909 Unspecified asthma, uncomplicated; E66.9 Obesity, unspecified; M19.90 Unspecified osteoarthritis, unspecified site; K21.9 Gastro-esophageal reflux disease without esophagitis; Z79.899 Other long term (current) drug therapy; Z86.19 Personal history of other infectious and parasitic diseases; Z86.010 Personal history of colon polyps; Z98.41 Cataract extraction status, right eye; Z98.42 Cataract extraction status, left eye; Z90.49 Acquired absence of other specified parts of digestive tract; Z98.891 History of uterine scar from previous surgery; Z98.51 Tubal ligation status; Z86.2 Personal history of diseases of the blood and blood-forming organs and certain disorders involving the immune mechanism; Z82.49 Family history of ischemic heart disease and other diseases of the circulatory system
CPT/HCPCS: 45380; 87426; J2704

== ENCOUNTER 2020-09-21 08:38 | Day surgery (SDC) | payer OTHER ==
[~2020-09-21] VITALS: Ht 167.6 cm; Wt 100.2 kg
[~2020-09-21 08:38] MED LIST changes: +ACETAMINOPHEN 500 MG TABLET PO PRN; +HYDROmorphone 2 MG/ML VIAL IVP PRN; -LIDOCAINE 2% PF 5 ML VIAL. ONE; +MORPHINE SULFATE 2 MG/ML VIAL. IVP PRN; +PROCHLORPERAZINE 10 MG/2 ML VIAL. IVP PRN; -PROPOFOL 10 MG/ML (20ML) VIAL. IV ONE; +fentaNYL PF VIAL 100 MCG/2 ML VIAL IVP PRN
[2020-09-21] MEDS ORDERED: NEOSTIGMINE METHYLSULFATE 5 MG/5 ML SYRINGE. ONE (08:54)
[2020-09-21] MEDS ORDERED: ROCURONIUM 50 MG/5 ML VIAL. ONE (08:54)
[2020-09-21] MEDS ORDERED: GLYCOPYRROLATE 1 MG/5 ML VIAL. ONE (08:54)
[2020-09-21 08:55] VITALS: BP 148/65
[2020-09-21] MEDS ORDERED: PROPOFOL 10 MG/ML (20ML) VIAL. IV ONE (08:56)
[2020-09-21] MEDS ORDERED: ONDANSETRON PF 4 MG/2 ML VIAL. ONE (08:56)
[2020-09-21] MEDS ORDERED: DEXAMETHASONE SOD PHOS 4 MG/ML VIAL ONE ×2 (08:56)
[2020-09-21] MEDS ORDERED: LIDOCAINE 2% PF 5 ML VIAL. ONE (08:57)
[2020-09-21] MEDS ORDERED: SEVOFLURANE 61 TO 120 MINUTES. IH ONE (08:57)
[2020-09-21] MEDS ORDERED: MINERAL OIL for SURGERY 10 ML VIAL. MC ONE (09:32)
[2020-09-21] MEDS ORDERED: BUPIVACAINE-EPI 0.25% 30 ML VIAL KIT. ONE (09:32)
[2020-09-21] MEDS ORDERED: MIDAZOLAM HCL/PF 2 MG/2 ML VIAL. ONE (09:38)
[2020-09-21] MEDS ORDERED: KETOROLAC 30 MG/ML VIAL. ONE (10:04)
[2020-09-21] MEDS ORDERED: oxyCODONE/APAP 5/325 1 TAB TABLET PO ONE ×3 (10:15→12:00)
[2020-09-21] MEDS ORDERED: ePHEDrine PF IN SALINE 50 MG/10 ML SYRINGE. IV ONE (10:16)
--- NOTE | 2020-09-21 11:08 | PDOC4 ---
Operative Note Operative Note Date: September 212020 at 1101 Preoperative diagnosis: Bilateral inguinal hernias and ventral hernia Postoperative diagnosis: Bilateral inguinal hernias and ventral diastases Procedure: Robotic assisted laparoscopic bilateral inguinal hernia repairs with mesh Surgeon: Sukhi Specimens: None Dictation: Patient is a 60-year-old female was complained of a bulge at her in her abdomen above her umbilicus a CT scan was performed which showed bilateral i nguinal hernias also suggesting a ventral hernia. Procedure of robotic assisted laparoscopic bilateral inguinal hernia pair of ventral hernia repair was explained to the patient detail risk benefits were also discussed including bleeding infection injury to intra-abdominal contents possible necessitating further open operations alternatives to this procedure also discussed with the patient who seemed to understand and gave both verbal and written consent to have the procedure performed. Patient was taken to the operating room placed in the supine position general anesthesia was initiated once patient was sleeping intubated her abdomen was prepped and draped usual sterile fashion using ChloraPrep. Area in the left upper quadrant was injected with quarter percent Marcaine with epinephrine incision was made 11 blade scalpel and a 5 mm Visiport was placed under direct visualization in the abdomen creating pneumoperitoneum once this complete 5 mm scope and camera were placed within the abdomen and inspected it was noted that the fascia of the abdomen was intact and that the bulge that the patient was noticing was a diastases not a true hernia. It was noted that there were bilateral inguinal hernias right larger than left. A 8 mm da Raul port was placed just above the umbilicus under direct visualization a 8 mm da Raul port was placed in the right midabdomen and one in the left midabd omen. The da Raul robot was brought and docked all port sites surgeon went to the robotic console using a grasper and Endo Audra scissors the peritoneum over the right inguinal area was incised this was reduced and inferiorly using blunt and sharp dissection. Attention was then turned to the left side which the peritoneum was incised and a window propagated inferiorly reducing the hernia sac and contents. A medium Bard 3D max mesh for the right side was placed and the peritoneum was closed over the mesh with a running 2 OV lock absorbable suture. A medium Bard 3D max mesh was placed over the left side and the peritoneum closed with a running 2 OV lock absorbable suture. Sutures removed from the abdomen the robot was undocked from all port sites all ports were removed pneumoperitoneum reduced all port sites were closed with 4 subcuticular Monocryl Mastisol Steri-Strips and island dressings were applied. Patient was awakened and extubated in the operating room taken to recovery in stable condition all sponge instrument needle counts listed as correct estimated blood loss 10 mL. DEBBIE MCADAMS MD Sep 21, 2020 11:08
--- NOTE | 2020-09-21 11:09 | DISCH ---
DISCHARGE INSTRUCTIONS Condition on Discharge Condition on Discharge: Stable Activity After Discharge Activity Instructions for Disc: Avoid exertion Other activity instructions: No lifting more than 20 pounds for 2 weeks Diet after Discharge Diet after Discharge: Regular Wound Incision Care Other wound/incision instructi: Akanksha shower in 24 hours Contacting the after DC Call your doctor for: If your condition worsens Follow-Up Follow up with: Dr. Mcadams in 2 weeks DEBBIE MCADAMS MD Sep 21, 2020 11:09
[2020-09-21] MEDS ORDERED: fentaNYL PF VIAL 100 MCG/2 ML VIAL ONE (11:33)
[2020-09-21] MEDS ORDERED: OXYC1TAB15 PO (11:47)
[2020-09-21 12:37] VITALS: BP 152/75
== END 2020-09-21 13:24 | disposition home or self-care (01) ==
LOC: SURG 08:38
PROVIDERS: ATTEND Surgery
DX: K40.20 Bilateral inguinal hernia, without obstruction or gangrene, not specified as recurrent (principal); K43.9 Ventral hernia without obstruction or gangrene; I10 Essential (primary) hypertension; E78.00 Pure hypercholesterolemia, unspecified; J45.909 Unspecified asthma, uncomplicated; E66.9 Obesity, unspecified; Z90.49 Acquired absence of other specified parts of digestive tract; Z90.710 Acquired absence of both cervix and uterus; Z98.51 Tubal ligation status; Z98.890 Other specified postprocedural states; Z79.899 Other long term (current) drug therapy; Z82.49 Family history of ischemic heart disease and other diseases of the circulatory system
CPT/HCPCS: 49650; J0690; J1100; J1885; J2250; J2405; J2704; J2710; J3010; J3490; S2900; A4364; A4657; A4930; A6219; C1781

== ENCOUNTER → 2020-10-25 | Outpatient (CLI) | payer OTHER ==
[~2020-10-25] MED LIST changes: -ACETAMINOPHEN 500 MG TABLET PO PRN; -HYDROmorphone 2 MG/ML VIAL IVP PRN; +IOHEXOL 180 MG/ML 10 ML VIAL. ONE; -IV RINGERS,LACTATED 1000ML 1,000 ML IV SCH; -MORPHINE SULFATE 2 MG/ML VIAL. IVP PRN; +OXYC1TAB15 PO; -PROCHLORPERAZINE 10 MG/2 ML VIAL. IVP PRN; -fentaNYL PF VIAL 100 MCG/2 ML VIAL IVP PRN; +methylPREDNISolone ACETATE 40 MG/ML VIAL. ONE; +methylPREDNISolone ACETATE 80 MG/ML VIAL. ONE
--- NOTE | 2020-10-25 14:59 | PDOC4 ---
Procedure Note: Procedure Note: Patient was consented for thoracic epidural steroid injection. Risks were discussed including but not limited to: Bleeding, infection, possibility of epidural hematoma and subsequent neurological compromise, dural puncture, headaches, spinal cord and/or nerve damage, side effects of steroid medication, and poor results regarding pain control. Patient understands and wished to proceed. Procedure is thoracic epidural steroid injection under local anesthetic using sterile prep and drape at the T9-10 level using C-arm fluoroscopic guidance in both AP and lateral views medications injected is 120 mg Depo-Medrol +10mL preservative-free normal saline and 2 mL contrast- condition at discharge is stable patient tolerated procedure well had no complications. NADER KOEHLER MD Oct 25, 2020 14:59
--- NOTE | 2020-10-25 14:59 | PDOC ---
Progress Note - Pain Clinic Date of Service: DOS: DATE: 10/25/20 TIME: 14:55 Diagnosis: Dx: Thoracic radiculopathy with thoracic degenerative disc disease History or Present Illness: HPI: 60-year-old female returns for follow-up status post thoracic epidural steroid injections x2 last seen July 03, 2020 patient did very well with near 80% improvement for about 2 months the pain began to return and then after recent abdominal surgery where she was forced to lay in a reclining chair to sleep and this change in position has caused some increased pain in the mid back itself patient reports is worse on the left side radiating superiorly and to the midl ine but slightly more on the left patient reports a 9 on scale 10 is worse over the past week 8 on average is 6 its least is an 8 today. Patient describes as aching dull and tight alternating radiating severe can be unbearable with sitting for prolonged periods walking standing changing positions and is been awakened from sleep about every 4 hours or so patient reports prior to the surgery the pain was doing fairly well in the mid back as she has done pretty well with these in the past but after the surgical procedure was forced to sleep incline chair is noted and seems to exacerbate the pain fairly significantly. Patient reports no medication of [id number] naproxen taking 500 mg twice daily which decreases the pain but only by about 20%. She continues to do stretching and strength exercises uses heat massage techniques at home as well. Physical Exam: VS: Blood pressure is 160/91 pulse 69 respirations 18 temperature 98.1 F height 5 feet 6 inches weight 226 pounds PE: PHYSICAL EXAMINATION: GENERAL: The patient is awake, alert, oriented, appropriate, very pleasant in demeanor HEENT: Shows normocephalic, atraumatic. Extraocular movements are intact and symmetrical. Oral cavity: Mucous membranes moist and pink. Dentition is intact. NECK: Shows anterior throat supple without palpable lymphadenopathy noted. Swallow reflex symmetrical. CHEST: Shows normal on inspection. Breath sounds are clear bilaterally, no rales or rhonchi. HEART: Shows S1, S2 clear. No murmurs auscultated. ABDOMEN: Soft, nontender, nondistended, obese. Well-healed laparoscopic surgical scars are noted. BACK: Shows spine grossly in the midline. Normal-appearing cervical lordotic curvature. There is slightly increased thoracic kyphosis, some minor flattening of the lumbar lordotic curvature. Thoracic paraspinous muscle shows symmetrical on inspection with palpation some moderate tenderness just to the left of midline in the mid to lower distribution of the thoracic paraspinous muscles without specific tenderness over the spinous processes. Patient has good rotation motion both laterally as well as extension flexion of the thoracic spine without significant increase in pain. Lumbar paraspinous muscles show symmetrical. EXTREMITIES: Lower extremities show deep tendon reflexes 2+ in the patellar and tendo calcaneus tendons. Motor exam is 5 on a scale of 5 with right dorsiflexion, extension, quadriceps and hamstring flexion and 5/5 on the left. Peripheral pulses are 1 posterior tibial. No peripheral edema is noted bilaterally. Lower extremities are warm and dry to touch, equal in color and appearance. SKIN: Shows warm and dry, good turgor. No edema. No sores, rashes or bruising throughout. Procedure: Procedure: Options were discussed with the patient. Patient's old chart was reviewed as her current medication regimen updated current review of systems updated today as well. We will proceed with a third in the series thoracic epidural steroid injection today with fluoroscopic guidance. Risks were discussed including but not limited to: Bleeding, infection, possibility of epidural hematoma and subsequent neurological compromise, dural puncture, headaches, spinal cord and/or nerve damage, side effects of steroid medication, and poor results regarding pain control. Patient understands and wished to proceed. Patient ret urn to clinic in approximate 2 weeks for follow-up, was counseled as return appointment activity level and side effects to be aware of. Medication Injected: Med Injected: Procedure is thoracic epidural steroid injection under local anesthetic using sterile prep and drape at the T9-10 level using C-arm fluoroscopic guidance in both AP and lateral views medications injected is 120 mg Depo-Medrol +10mL preservative-free normal saline and 2 mL contrast- condition at discharge is stable patient tolerated procedure well had no complications. Condition at Discharge: Condition at Discharge: Condition at discharge stable, patient alert procedure well and had no complications. NADER KOEHLER MD Oct 25, 2020 14:59
== END | disposition home or self-care (01) ==
LOC: PNCL 14:03
PROVIDERS: ATTEND Anesthesiology
DX: M51.14 Intervertebral disc disorders with radiculopathy, thoracic region (principal); I10 Essential (primary) hypertension; E78.00 Pure hypercholesterolemia, unspecified; J45.909 Unspecified asthma, uncomplicated; E66.9 Obesity, unspecified; Z90.49 Acquired absence of other specified parts of digestive tract; Z90.710 Acquired absence of both cervix and uterus; Z98.51 Tubal ligation status; Z98.890 Other specified postprocedural states; Z79.899 Other long term (current) drug therapy
CPT/HCPCS: 62321; J1030; J1040; Q9965

== ENCOUNTER → 2020-12-28 | Outpatient (CLI) | payer OTHER ==
[~2020-12-28] MED LIST changes: -IOHEXOL 180 MG/ML 10 ML VIAL. ONE; -methylPREDNISolone ACETATE 40 MG/ML VIAL. ONE; -methylPREDNISolone ACETATE 80 MG/ML VIAL. ONE
[2020-12-28 08:06] LABS: BASO % 1 % (0-3); EOS # 0.1 x10^3/uL (0.0-0.7); EOS % 2 % (0-3); HEMATOCRIT 34.2 % (36.0-47.0); HEMOGLOBIN 11.3 g/dL (12.0-15.5); LYMPH # 1.2 x10^3/uL (1.0-4.8); LYMPH % 29 % (24-48); MEAN CORPUSCULAR HEMOGLOBIN 28 pg (25-35); MEAN CORPUSCULAR HGB CONC 33 g/dL (31-37); MEAN CORPUSCULAR VOLUME 86 fL (79-100); MONO # 0.4 x10^3/uL (0.0-1.1); MONO % 10 % (0-9); NEUT # 2.6 x10^3/uL (1.8-7.7); NEUT % 59 % (31-73); PLATELET COUNT 261 x10^3/uL (140-400); RED BLOOD COUNT 3.98 x10^6/uL (3.50-5.40); RED CELL DISTRIBUTION WIDTH 14.6 % (11.5-14.5); WHITE BLOOD COUNT 4.4 x10^3/uL (4.0-11.0)
[2020-12-28 08:41] LABS: ALBUMIN 3.8 g/dL (3.4-5.0); CALCIUM 9.3 mg/dL (8.5-10.1); CREATININE 0.9 mg/dL (0.6-1.0); GFR 77.5; POTASSIUM 3.3 mmol/L (3.5-5.1); TOTAL BILIRUBIN 0.3 mg/dL (0.2-1.0); TOTAL PROTEIN 7.5 g/dL (6.4-8.2)
[2020-12-28 08:43] LABS: CHOLESTEROL/HDL RATIO 7.6
[2020-12-28 08:54] LABS: FREE T4 1.04 ng/dL (0.76-1.46); THYROID STIM HORMONE (TSH) 2.594 uIU/mL (0.358-3.74)
== END ==
LOC: LAB 07:27
PROVIDERS: ATTEND Nurse Practitioner
DX: Z13.220 Encounter for screening for lipoid disorders (principal); I10 Essential (primary) hypertension
CPT/HCPCS: 36415; 80053; 80061; 84439; 84443; 85025

== ENCOUNTER 2021-01-29 21:32 | Emergency (ER) | payer OTHER ==
[~2021-01-29] VITALS: Ht 167.6 cm; Wt 97.0 kg
--- NOTE | 2021-01-29 23:47 | RAD ---
EXAMINATION: XR KNEE 3 VIEWS_RT CLINICAL HISTORY: Knee pain TECHNIQUE: XR KNEE 3 VIEWS_RT COMPARISON: None FINDINGS/ IMPRESSION: Moderate medial and lateral compartment narrowing. Patellofemoral compartment narrowing. Tricompartme ntal tiny marginal osteophytes. No acute fracture. Small patellar enthesophytes, possibly remotely fr actured. No significant joint effusion. Electronically signed by: Daniel Christianson DO (01/29/2021 11:45 PM) AMBER
--- NOTE | 2021-01-30 00:11 | RAD ---
EXAMINATION: US DPLX VENOUS EXTREMITY LOWER RT (LOWER EXTREMITY VENOUS ULTRASOUND) CLINICAL HISTORY: Right lower extremity pain TECHNIQUE: Sonographic grayscale images obtained of the right lower extremity deep venous system with color flow Doppler, compression, and augmentation techniques as indicated. Images obtained and stor ed in a permanent archive. COMPARISON: None FINDINGS: No evidence of absent flow or incompressibility within the common femoral vein, femoral vein, or popl iteal vein. Visualized calf veins appear patent on limited evaluation. IMPRESSION: No evidence of right lower extremity DVT. Electronically signed by: Daniel Christianson DO (01/30/2021 12:09 AM) [facility]
--- NOTE | 2021-01-30 00:43 | PHYS DOC ---
Past Medical History Past Medical History: Hypertension, Other Additional Past Medical Histor: insomnia Past Surgical History: Cholecystectomy, Additional Past Surgical Histo: cardiac cath, left breast biopsy Smoking Status: Never Smoker Alcohol Use: None Drug Use: None General Adult EDM: Chief Complaint: LOWER EXT PAIN HPI: HPI: Patient is a 60 year old female with history of hypertension who presents to the ED today complaining of 9 out of 10 sharp intermittent right knee pain that began this evening. Patient stated she was sitting for while having dinner, she stood up and immediately felt a sharp pain through the anterior to posterior side of the knee. Patient states pain was exacerbated on weightbearing. States straightening the leg relieves the pain. Patient denies any trauma. Review of Systems: Review of Systems: Constitutional: Denies fever or chills. []] Musculoskeletal: Reports right knee pain Integument: Denies rash. [] Neurologic: Denies headache, focal weakness or sensory changes. [] Psychiatric: Denies depression or anxiety. [] Heart Score: C/O Chest Pain: N/A Risk Factors: Risk Factors: DM, Current or recent (<one month) smoker, HTN, HLP, family history of CAD, obesity. Risk Scores: Score 0 - 3: 2.5% MACE over next 6 weeks - Discharge Home Score 4 - 6: 20.3% MACE over next 6 weeks - Admit for Clinical Observation Score 7 - 10: 72.7% MACE over next 6 weeks - Early Invasive Strategies Allergies: Allergies: Allergies Coded Allergies Type Severity Reaction Last Updated Verified No Known Drug Allergies 09/21/20 No Physical Exam: PE: Constitutional: Well developed, well nourished, no acute distress, non-toxic appearance. [] Skin: Warm, dry, no erythema, no rash. [] Back: No tenderness, no CVA tenderness. [] Extremities: Right lower extremity with no obvious deformity, right knee with no swelling, no bruising, tenderness on the posterior aspect of the knee. Full passive range of motion to the right knee, negative Michael sign, negative Baldomero sign, negative anterior posterior drawer sign to the right knee. +2 right pedal pulse. Cap refill less than 2 seconds the right lower extremity. Sensation intact to the right lower extremity Neurologic: Alert and oriented X 3, normal motor function, normal sensory function, no focal deficits noted. [] Psychologic: Affect normal, judgement normal, mood normal. [] Current Patient Data: Vital Signs: Vital Signs Date Time Temp Pulse Resp B/P (MAP) Pulse Ox O2 Delivery O2 Flow Rate FiO2 01/29/21 23:36 98.5 65 18 183/86 (118) 98 98.5 EKG: EKG: [] Radiology/Procedures: Radiology/Procedures: []PROCEDURE: VENOUS LOWER EXTREMITY RIGHT EXAMINATION: US DPLX VENOUS EXTREMITY LOWER RT (LOWER EXTREMITY VENOUS ULTRASOUND) CLINICAL HISTORY: Right lower extremity pain TECHNIQUE: Sonographic grayscale images obtained of the right lower extremity deep venous system with color flow Doppler, compression, and augmentation techniques as indicated. Images obtained and stored in a permanent archive. COMPARISON: None FINDINGS: No evidence of absent flow or incompressibility within the common femoral vein, femoral vein, or popliteal vein. Visualized calf veins appear patent on limited evaluation. IMPRESSION: No evidence of right lower extremity DVT. Electronically signed by: Daniel Pablo DO (01/30/2021 12:09 AM) AMBER DICTATED and SIGNED BY: DANIEL PABLO DO DATE: 01/30/21 [id number] PROCEDURE: KNEE RIGHT 3V EXAMINATION: XR KNEE 3 VIEWS_RT CLINICAL HISTORY: Knee pain TECHNIQUE: XR KNEE 3 VIEWS_RT COMPARISON: None FINDINGS/ IMPRESSION: Moderate medial and lateral compartment narrowing. Patellofemoral compartment narrowing. Tricompartmental tiny marginal osteophytes. No acute fracture. Small patellar enthesophytes, possibly remotely fractured. No significant joint effusion. Electronically signed by: Daniel Pablo DO (01/29/2021 11:45 PM) AMBER DICTATED and SIGNED BY: DANIEL PABLO DO DATE: 01/29/21 [id number] Course & Med Decision Making: Course & Med Decision Making Pertinent Labs and Imaging studies reviewed. (See chart for details) This a 60-year-old female patient presenting to the ED today with right knee pain that began today. Right knee x-rays interpreted by radiologist were noted for DJD, venous Doppler of the right lower extremity was also done which was negative. Immobilizer applied to the right knee by the ED RN, neurovascular exam done by the RN is normal. Ice elevation encouraged. Follow-up with Ortho in 1 week. OTC pain relievers Blood pressure was 183/86 on arrival to the ED on arrival to the ED, blood pressure was rechecked, it continued to go up to 188/88, patient was given clonidine. She states she is on atenolol and takes it in the morning. Instructed to start monitoring her blood pressure, if it continues to stay high she is to follow-up with her own PCP Josiah Disclaimer: Josiah Disclaimer: This electronic medical record was generated, in whole or in part, using a voice recognition dictation system. Departure Departure Impression: Primary Impression: Right knee DJD Qualified Codes: M17.11 - Unilateral primary osteoarthritis, right knee Additional Impression: Right knee pain Qualified Codes: M25.561 - Pain in right knee Disposition: HOME / SELF CARE / HOMELESS Condition: STABLE Referrals: REINALDO GARCIA APRN (PCP) ROSA PALOMO DO follow up in 1-2 weeks Patient Instructions: Arthritis, Degenerative-Brief Additional Instructions: You were seen for right knee pain, your right knee x-rays were noted for arthritis. Your ultrasound of the right lower extremity is negative for any acute findings. We ask you to ice and elevate the extremity. Scripts Naproxen (NAPROXEN) 500 Mg Tablet 1 TAB PO BID for pain, #14 TAB 0 Refills Prov: RITA MARIN APRN 01/30/21 RITA MARIN APRN Jan 30, 2021 00:43
[2021-01-30] MEDS ORDERED: NAPR-514 PO (00:51)
[2021-01-30] MEDS ORDERED: cloNIDine HCL 0.1 MG TABLET PO ONE (01:00)
[2021-01-30 01:40] VITALS: BP 154/76
== END 2021-01-30 01:42 | disposition home or self-care (01) ==
LOC: ER 21:32
DX: M17.11 Unilateral primary osteoarthritis, right knee (principal); M25.561 Pain in right knee; I10 Essential (primary) hypertension; Z90.49 Acquired absence of other specified parts of digestive tract; Z98.890 Other specified postprocedural states
CPT/HCPCS: 29505; 73562; 93971; 99283; 99284

== ENCOUNTER → 2021-02-15 | Outpatient (CLI) | payer OTHER ==
[2021-01-30 01:40] VITALS: BP 154/76
[~2021-02-15] MED LIST changes: +NAPR-514 PO
--- NOTE | 2021-02-15 16:16 | RAD ---
Examination: MRI of the right knee without contrast HISTORY: History of chronic right knee pain COMPARISON: None TECHNIQUE: Multiplanar, multisequence MR imaging of the right knee was performed without contrast. FINDINGS: The anterior cruciate ligament, posterior cruciate ligament appears intact. The medial meniscus appea rs intact. There is blunting and attenuation of the body of the medial meniscus with horizontal incre ased signal in the posterior horn likely tear The. There is horizontal increased signal identified in the posterior horn of the lateral meniscus with multiloculated cystic structure measuring 1 cm exten ding laterally and inferior to the posterior horn of the lateral meniscus, best visualized on series 7 image 6 likely meniscal cyst. The medial collateral ligament appears intact. Lateral collateral lig amentous complex including the fibular collateral ligament, biceps femoris, popliteus tendon appears intact. The medial, lateral retinaculum appears intact. Small knee joint effusion There is deep fissuring of cartilage identified in the medial, lateral, patellofemoral compartments. The extensor mechanism appears intact. Moderate joint space loss identified in the medial, lateral, p atellofemoral compartments. IMPRESSION: 1. Tear of the posterior horn of the medial meniscus. 2. Horizontal increased signal identified in the posterior horn of the lateral meniscus with multilo culated cystic structure measuring 1 cm extending laterally and inferior to the posterior horn of the lateral meniscus, likely meniscal cyst. 3. Grade II chondromalacia medial, lateral, patellofemoral compartments. 4. Small knee joint effusion. Electronically signed by: Griffin Cervantes MD (02/15/2021 4:14 PM) [id number]
== END ==
LOC: MRI 12:24
PROVIDERS: ATTEND Orthopaedic Surgery
DX: S83.241A Other tear of medial meniscus, current injury, right knee, initial encounter (principal); M25.461 Effusion, right knee; M94.261 Chondromalacia, right knee; X58.XXXA Exposure to other specified factors, initial encounter; Y93.89 Activity, other specified; Y92.89 Other specified places as the place of occurrence of the external cause; Y99.8 Other external cause status
CPT/HCPCS: 73721

== ENCOUNTER → 2021-03-06 | Outpatient (CLI) | payer OTHER ==
--- NOTE | 2021-03-06 15:29 | RAD ---
Examination: MRI of the left knee without contrast HISTORY: History of left knee pain COMPARISON: None available TECHNIQUE: Multiplanar, multisequence MR imaging of the left knee without contrast FINDINGS: There is full-thickness tear of the anterior cruciate ligament. The posterior cruciate ligament appea rs intact.The medial meniscus appears intact. There is blunting of the body and posterior horn of the lateral meniscus likely tear. The medial collateral ligament appears intact. Lateral collateral liga mentous complex including the fibular collateral ligament, biceps femoris and popliteus tendon appear s intact. The extensor mechanism appears intact. Fragmented appearance of the superior lateral patella. Moderat e joint space loss medial, lateral, patellofemoral compartments. The medial, lateral retinaculum appe ars intact. Small knee joint effusion Mild superficial fraying of cartilage identified in the medial, lateral compartment femoral compartme nts. IMPRESSION: 1. Full-thickness tear of the anterior cruciate ligament, age indeterminate. 2. Blunting of the body and posterior horn of the lateral meniscus likely tear. 3. Moderate tricompartmental degenerative changes. 4. Small knee joint effusion. 5. Fragmented appearance of the the superolateral patella probably congenital or old fractures.. Electronically signed by: Griffin Cervantes MD (03/06/2021 3:27 PM) [id number]
== END ==
LOC: MRI 13:43
PROVIDERS: ATTEND Orthopaedic Surgery
DX: S83.512A Sprain of anterior cruciate ligament of left knee, initial encounter (principal); M17.12 Unilateral primary osteoarthritis, left knee; M25.462 Effusion, left knee; M25.862 Other specified joint disorders, left knee; X58.XXXA Exposure to other specified factors, initial encounter; Y93.89 Activity, other specified; Y92.89 Other specified places as the place of occurrence of the external cause; Y99.8 Other external cause status
CPT/HCPCS: 73721

== ENCOUNTER 2021-03-16 08:53 | Day surgery (SDC) | payer OTHER ==
[~2021-03-16] VITALS: Ht 167.6 cm; Wt 100.0 kg
[~2021-03-16 08:53] MED LIST changes: +ATOR20TA58 PO; +HYDROmorphone 2 MG/ML VIAL IVP PRN; +IV RINGERS,LACTATED 1000ML 1,000 ML IV SCH; +MORPHINE SULFATE 2 MG/ML INJ. IVP PRN; +PHEN15CA6 PO; +PROCHLORPERAZINE 10 MG/2 ML VIAL. IVP PRN; +fentaNYL PF VIAL 100 MCG/2 ML VIAL IVP PRN
[2021-03-16] MEDS ORDERED: HYDR-2761 PO (09:12)
--- NOTE | 2021-03-16 09:15 | DISCH ---
DISCHARGE INSTRUCTIONS Condition on Discharge Condition on Discharge: Stable Activity After Discharge Activity Instructions for Disc: Activity as tolerated, Avoid exertion Driving Instructions after Dis: Do not drive today Weight Bearing Status after Di: Full weight bearing Diet after Discharge Diet after Discharge: Regular Wound Incision Care Other wound/incision instructi: May change dressings postoperative day #3 Contacting the after DC Call your doctor for: If your condition worsens Follow-Up Follow up with: 10 to 14 days JUAN THAYER Jr. DO Mar 16, 2021 09:15
[2021-03-16] MEDS ORDERED: BUPIVACAINE-EPI 0.25% 30 ML VIAL KIT. ONE (09:17)
--- NOTE | 2021-03-16 10:29 | PDOC4 ---
OPERATIVE NOTE Date: Date: Mar 16, 2021 Pre-Op Diagnosis: Lateral meniscal tear with degenerative joint disease lateral compartment right knee Post-Op Diagnosis: Same Procedure Performed: Right knee arthroscopy with partial lateral meniscectomy joint debridement Surgeon: Rajat Anesthesia Type: General Blood Loss: 10 cc Specimans Obtained: None Findings: See dictation Complications: None JUAN THAYER Jr., DO Mar 16, 2021 10:29
[2021-03-16] MEDS ORDERED: HYDROcodone/APAP 5/325MG 1 TAB TABLET PO ONE (10:45)
--- NOTE | 2021-03-16 10:56 | OP ---
DATE OF SURGERY: 03/16/2021 PREOPERATIVE DIAGNOSES: Lateral meniscal tear with degenerative joint disease, lateral compartment, right knee. POSTOPERATIVE DIAGNOSES: Lateral meniscal tear with degenerative joint disease, lateral compartment, right knee. PROCEDURE: Right knee arthroscopy with partial lateral meniscectomy and joint debridement, lateral femoral condyle. SURGEON: Lewis Earl Jr, DO. ORDER CHECKER: Víctor Sawant. ANESTHESIA: General. COMPLICATIONS: None. ESTIMATED BLOOD LOSS: 10 mL. DESCRIPTION OF PROCEDURE: The patient was taken to the operative suite, given a general anesthetic. Right lower extremity was placed in a knee de dios, prepped and draped in a sterile fashion. Inferomedial and inferolateral portals were established. The glenohumeral joint was visualized and noted to be intact. No significant lesions were noted of the patellofemoral joint throughout the arc of motion on the femoral sulcus or the undersurface of the patella. There were some loose bodies with chondral cartilage, which were noted throughout the knee. Those were easily removed with suction and the use of the shaver. Upon entering the medial compartment, the meniscus was noted to be stable, no tears were noted to that area. Probing revealed this to be stable and probing also of the medial compartment noticed to be intact without any significant lesions, especially on the femoral side of the joint. Tibial side of the joint was intact as well. Scope was then taken to the intercondylar region. The ACL and the PCL were probed and noted to be stable visually as well as with the probe itself. Lateral compartment was entered. There was noted to be a very large split tear of the posterior horn of the lateral meniscus as well as some degenerative changes, deep grade 3 along the condyle from 0 up to 35-40 degrees of flexion. There were some unstable chondral lesions along this area. Therefore, chondral debridement was undertaken on the femoral side of the joint and again removal of some of the loose bodies throughout the knee was also done and then using basket forceps and a shaver, a partial lateral meniscectomy was undertaken and this was debrided back to stable tissue. The remaining portion of the meniscus was noted to be completely intact and stable. Therefore, this was thoroughly irrigated, reinspected. No new problems were noted. Therefore, this was suctioned dry. All instruments were removed. The wounds were then reapproximated. Local was placed within the portal sites. A sterile dressing was applied. The patient was then taken from the operative bed to the postoperative bed, taken to the PACU in stable condition. SIOBHAN DR: Kian TID: [id number]
[2021-03-16 11:10] VITALS: BP 151/85
== END 2021-03-16 11:56 | disposition home or self-care (01) ==
LOC: SURG 08:53
PROVIDERS: ATTEND Orthopaedic Surgery
DX: S83.281A Other tear of lateral meniscus, current injury, right knee, initial encounter (principal); M17.11 Unilateral primary osteoarthritis, right knee; I10 Essential (primary) hypertension; E78.00 Pure hypercholesterolemia, unspecified; J45.909 Unspecified asthma, uncomplicated; E66.9 Obesity, unspecified; Z90.710 Acquired absence of both cervix and uterus; Z98.51 Tubal ligation status; Z98.890 Other specified postprocedural states; Z79.899 Other long term (current) drug therapy; X58.XXXA Exposure to other specified factors, initial encounter; Y93.89 Activity, other specified; Y92.89 Other specified places as the place of occurrence of the external cause; Y99.8 Other external cause status
CPT/HCPCS: 29881; A4213; A4930; J0690

== ENCOUNTER 2021-04-16 08:07 | Day surgery (SDC) | payer OTHER ==
[~2021-04-16] VITALS: Ht 167.6 cm; Wt 95.9 kg
[~2021-04-16 08:07] MED LIST changes: +DEXAMETHASONE SOD PHOS 4 MG/ML VIAL ONE; +HYDR-2761 PO; +HYDR12.575 PO; +HYDROmorphone 2 MG/ML INJ. IVP PRN; -HYDROmorphone 2 MG/ML VIAL IVP PRN; +ONDANSETRON PF 4 MG/2 ML VIAL. ONE; +PROPOFOL 10 MG/ML (20ML) VIAL. IV ONE; +fentaNYL PF VIAL 100 MCG/2 ML VIAL ONE
[2021-04-16] MEDS ORDERED: BUPIVACAINE-EPI 0.25% 30 ML VIAL KIT. ONE (08:39)
[2021-04-16 08:49] VITALS: BP 146/73
[2021-04-16] MEDS ORDERED: HYDR-2765 PO (09:50)
--- NOTE | 2021-04-16 09:52 | DISCH ---
DISCHARGE INSTRUCTIONS Condition on Discharge Condition on Discharge: Stable Activity After Discharge Activity Instructions for Disc: Activity as tolerated, Avoid exertion Driving Instructions after Dis: Do not drive today, No driving for 2 weeks Weight Bearing Status after Di: Full weight bearing Diet after Discharge Diet after Discharge: Regular Wound Incision Care Wound/Incision Care: Ice to area for comfort, Keep wound elevated, Do not gasca e dressing Contacting the DR. after DC Call your doctor for: If your condition worsens Follow-Up Follow up with: 10 to 14 days JUAN THAYER Jr. DO Apr 16, 2021 09:52
[2021-04-16] MEDS ORDERED: HYDROmorphone 2 MG/ML INJ. ONE (10:01)
[2021-04-16] MEDS ORDERED: ePHEDrine PF IN SALINE 50 MG/10 ML SYRINGE. IV ONE (10:04)
[2021-04-16] MEDS ORDERED: GLYCOPYRROLATE 1 MG/5 ML VIAL. ONE (10:20)
--- NOTE | 2021-04-16 10:27 | PDOC4 ---
OPERATIVE NOTE Date: Date: Apr 16, 2021 Pre-Op Diagnosis: ACL tear lateral meniscal tear left knee Post-Op Diagnosis: ACL tear with severe degenerative joint disease lateral compartment lateral meniscal tear patellofemoral arthritis left knee Procedure Performed: Left knee arthroscopy with partial lateral meniscectomy joint debridement patellofemoral joint and lateral compartment Surgeon: Rajat Anesthesia Type: General Blood Loss: 20 cc Specimans Obtained: None Findings: See dictation Complications: None JUAN THAYER Jr. DO Apr 16, 2021 10:27
[2021-04-16] MEDS ORDERED: fentaNYL PF VIAL 100 MCG/2 ML VIAL ONE (11:06)
[2021-04-16] MEDS: fentaNYL PF VIAL 100 MCG/2 ML VIAL IVP PRN ×2 (11:10→11:26)
[2021-04-16] MEDS ORDERED: HYDROcodone/APAP 7.5/325MG 1 TAB TABLET PO ONE (11:15)
--- NOTE | 2021-04-16 11:16 | OP ---
DATE OF SURGERY: 04/16/2021 PREOPERATIVE DIAGNOSES: Anterior cruciate ligament tear with lateral meniscal tear, left knee. POSTOPERATIVE DIAGNOSES: Anterior cruciate ligament tear with severe degenerative joint disease, lateral compartment, lateral meniscal tear and patellofemoral arthritis, left knee. PROCEDURES: Left knee arthroscopy with partial lateral meniscectomy joint debridement. SURGEON: Lewis Earl Jr, DO EQUIPMENT OR MACHINERY CLEANER: Víctor Sawant. ANESTHESIA: General. COMPLICATIONS: None. ESTIMATED BLOOD LOSS: 20 mL. DESCRIPTION OF PROCEDURE: The patient was taken to the operative suite, given a general anesthetic. Left lower extremity was placed in a knee de dios, prepped and draped in a sterile fashion. The inferomedial and inferolateral portals were established. The knee was insufflated with saline. Visualization of the patellofemoral joint noted the patella to be mostly intact with some fracturing, but no definitive deficits were noted at this point. Scope was then taken into the femoral sulcus, where there was noted to be a large approximately 8-9 mm area completely devoid of cartilage in that femoral sulcus. The periphery was unstable, therefore this was debrided back to stable tissue. No other lesions or abnormalities were noted about this area. There was proper tracking noted at the patellofemoral joint. Scope was then taken into the medial compartment, which was noted to be intact. There were some grade 2 and 3 changes. These were unstable. This was debrided back to stable tissue, but no bone was exposed. The meniscus was noted to be completely intact and stable. Scope was then taken into the intercondylar region. The ACL was completely torn. The PCL was completely intact and stable with probing. Debridement was undertaken to remove the remnant of the ACL. Scope was then taken into the lateral compartment. There was noted to be near complete loss and degeneration and fraying and tearing of the lateral meniscus along the substance from the posterior two-thirds. This was debrided back out to stable tissue with only minimal meniscus remaining at this point in the anterior meniscus mostly intact at this point. However, from approximately 5 degrees of flexion all the way up to 70-75 degrees of flexion, the lateral femoral condyle was completely devoid of any articular cartilage. The periphery was very unstable, therefore this was debrided back to stable tissue, but in any manner, this was a significant and large amount of deficits along the lateral femoral condyles noted. This was then reinspected. No loose bodies were noted, therefore this was thoroughly irrigated and suctioned dry. All instruments were removed. Sterile dressing was applied. The patient was then taken from the operative bed to the postoperative bed, taken to the PACU in stable condition. BELINDA DR: Kian TID: [id number]
[2021-04-16 11:35] VITALS: BP 120/70
== END 2021-04-16 12:12 | disposition home or self-care (01) ==
LOC: SURG 08:07
PROVIDERS: ATTEND Orthopaedic Surgery
DX: S83.282A Other tear of lateral meniscus, current injury, left knee, initial encounter (principal); S83.512A Sprain of anterior cruciate ligament of left knee, initial encounter; M17.12 Unilateral primary osteoarthritis, left knee; I10 Essential (primary) hypertension; E78.00 Pure hypercholesterolemia, unspecified; E66.9 Obesity, unspecified; J45.909 Unspecified asthma, uncomplicated; Z90.49 Acquired absence of other specified parts of digestive tract; Z90.710 Acquired absence of both cervix and uterus; Z98.890 Other specified postprocedural states; Z98.51 Tubal ligation status; Z79.899 Other long term (current) drug therapy; Z82.49 Family history of ischemic heart disease and other diseases of the circulatory system; X58.XXXA Exposure to other specified factors, initial encounter; Y93.89 Activity, other specified; Y92.89 Other specified places as the place of occurrence of the external cause; Y99.8 Other external cause status
CPT/HCPCS: 29881; A4930; J0690; J1100; J1170; J2405; J2704; J3010; J3490; A4452

== ENCOUNTER → 2021-05-02 | Outpatient (CLI) | payer OTHER ==
[2021-04-16 11:35] VITALS: BP 120/70
[~2021-05-02] MED LIST changes: -DEXAMETHASONE SOD PHOS 4 MG/ML VIAL ONE; +HYDR-2765 PO; -HYDROmorphone 2 MG/ML INJ. IVP PRN; -IV RINGERS,LACTATED 1000ML 1,000 ML IV SCH; -MORPHINE SULFATE 2 MG/ML INJ. IVP PRN; -ONDANSETRON PF 4 MG/2 ML VIAL. ONE; -PROCHLORPERAZINE 10 MG/2 ML VIAL. IVP PRN; -PROPOFOL 10 MG/ML (20ML) VIAL. IV ONE; -fentaNYL PF VIAL 100 MCG/2 ML VIAL IVP PRN; -fentaNYL PF VIAL 100 MCG/2 ML VIAL ONE
[2021-05-02 13:33] LABS: BASO % 0 % (0-3); EOS # 0.1 x10^3/uL (0.0-0.7); EOS % 2 % (0-3); HEMATOCRIT 32.3 % (36.0-47.0); HEMOGLOBIN 10.4 g/dL (12.0-15.5); LYMPH # 1.6 x10^3/uL (1.0-4.8); LYMPH % 30 % (24-48); MEAN CORPUSCULAR HEMOGLOBIN 27 pg (25-35); MEAN CORPUSCULAR HGB CONC 32 g/dL (31-37); MEAN CORPUSCULAR VOLUME 84 fL (79-100); MONO # 0.4 x10^3/uL (0.0-1.1); MONO % 8 % (0-9); NEUT # 3.1 x10^3/uL (1.8-7.7); NEUT % 59 % (31-73); PLATELET COUNT 313 x10^3/uL (140-400); RED BLOOD COUNT 3.84 x10^6/uL (3.50-5.40); RED CELL DISTRIBUTION WIDTH 13.9 % (11.5-14.5); WHITE BLOOD COUNT 5.2 x10^3/uL (4.0-11.0)
[2021-05-02 13:40] LABS: PROTHROMBIN TIME PATIENT 12.6 SEC (11.7-14.0)
[2021-05-02 13:41] LABS: ALBUMIN 3.6 g/dL (3.4-5.0); CALCIUM 8.6 mg/dL (8.5-10.1); CREATININE 0.8 mg/dL (0.6-1.0); GFR 88.8
--- NOTE | 2021-05-02 13:42 | EKG ---
[facility] [address] [place] [address] Test Date: 2021-05-02 Test Time: 13:38:36 Pat Name: DAVID GARZA Department: Room: Gender: F [employer]: : 1960 Requested By: JUAN THAYER Order Number: [id number] Reading MD: Larry Kearns MD Measurements Intervals Logan Rate: 66 P: 34 MT: 168 QRS: -5 QRSD: 74 T: 7 QT: 420 QTc: 442 Interpretive Statements SINUS RHYTHM Electronically Signed On 05-03-2021 8:44:20 CARTOGRAPHIC AIDE by Larry Kearns MD
[2021-05-02 13:51] LABS: POTASSIUM 2.9 mmol/L (3.5-5.1)
--- NOTE | 2021-05-02 14:13 | RAD ---
AP and Lateral Views of the Chest 05/02/2021 1:53 PM Indication: Reason: PRE-OP EVAL FOR TOTAL KNEE REPLACEMENT Comparison: Chest radiograph October 08, 2016 Findings: Mild lingular discoid atelectasis noted.. There is no other focal consolidation or infiltra te identified. The cardiomediastinal silhouette is within normal limits. There is no evidence of pneu mothorax or pleural effusion. No acute osseous abnormalities are identified. Impression: Minimal lingular discoid atelectasis. Otherwise no evidence of acute cardiopulmonary proc ess. Electronically signed by: Norris Haddad MD (05/02/2021 2:10 PM) [id number]
[2021-05-03 04:11] LABS: HEMOGLOBIN A1C 6.1 % (4.8-5.6)
== END ==
LOC: SURGPAT 12:56
PROVIDERS: ATTEND Orthopaedic Surgery
DX: Z01.818 Encounter for other preprocedural examination (principal); M17.12 Unilateral primary osteoarthritis, left knee
CPT/HCPCS: 36415; 71046; 80048; 82040; 82306; 83036; 85025; 85610; 85651; 85730; 87641; 93005

== ENCOUNTER → 2021-05-09 | Outpatient (CLI) | payer OTHER ==
[2021-04-16 11:35] VITALS: BP 120/70
[~2021-05-09] MED LIST changes: +POTA-112 PO
== END ==
LOC: LAB 07:08
PROVIDERS: ATTEND Nurse Practitioner
DX: E87.6 Hypokalemia (principal)
CPT/HCPCS: 36415; 84132

== ENCOUNTER 2021-05-16 06:05 | Observation (INO) | payer OTHER ==
[2021-05-02 13:19] VITALS: BP 191/88
[~2021-05-16] VITALS: Ht 167.6 cm; Wt 100.0 kg
[2021-05-16] VITALS (10 sets, daily range): BP systolic 115–152; BP diastolic 53–74
[~2021-05-16 06:05] MED LIST changes: +ACETAMINOPHEN 500 MG TABLET PO PRN; +GABAPENTIN 300 MG CAPSULE. PO PRN; +IV RINGERS,LACTATED 1000ML 1,000 ML IV SCH; +MELOXICAM 7.5 MG TABLET PO PRN; +PROCHLORPERAZINE 10 MG/2 ML VIAL. IVP PRN; +TRANEXAMIC ACID 1,000 MG in IV NS 50ML -- 1ST BAG INJ ONE; +TV=62ml MORPHINE 5 MG, KETOROLAC 30 MG, ROPIV, EPI INT ART ONE; +fentaNYL PF VIAL 100 MCG/2 ML VIAL IVP PRN
[2021-05-16] MEDS ORDERED: MELO15TA23 PO (06:55)
[2021-05-16] MEDS ORDERED: VANCOMYCIN 1 GM VIAL. ONE (07:09)
[2021-05-16] MEDS ORDERED: ONDANSETRON PF 4 MG/2 ML VIAL. ONE (07:18)
[2021-05-16] MEDS ORDERED: PROPOFOL 10 MG/ML (20ML) VIAL. IV ONE (07:18)
[2021-05-16] MEDS ORDERED: fentaNYL PF VIAL 250 MCG/5 ML VIAL ONE (07:18)
[2021-05-16] MEDS ORDERED: LIDOCAINE 2% PF 5 ML VIAL. ONE (07:18)
[2021-05-16] MEDS ORDERED: DEXAMETHASONE SOD PHOS 4 MG/ML VIAL ONE (07:18)
[2021-05-16] MEDS ORDERED: TRANEXAMIC ACID in NS IVPB 100 ML ONE (07:50)
[2021-05-16] MEDS ORDERED: ePHEDrine PF IN SALINE 50 MG/10 ML SYRINGE. IV ONE (07:53)
[2021-05-16] MEDS ORDERED: TRANEXAMIC ACID 1,000 MG in IV NS 50ML -- 2ND BAG INJ ONE (08:00)
[2021-05-16] MEDS ORDERED: SEVOFLURANE > 120 MINUTES. IH ONE (08:07)
--- NOTE | 2021-05-16 09:18 | PDOC4 ---
OPERATIVE NOTE Date: Date: May 16, 2021 Pre-Op Diagnosis: Degenerative joint disease with ACL insufficiency left knee Post-Op Diagnosis: Same Procedure Performed: Left total knee arthroplasty Surgeon: Rajat Anesthesia Type: General Blood Loss: 150 cc Specimans Obtained: Bone and soft tissue left knee Findings: Size 4 tibia with 9 mm tibial polyethylene insert size 32 patella size 5 femur Complications: None JUAN THAYER Jr. DO May 16, 2021 09:18
[2021-05-16] MEDS ORDERED: DEXTROSE 50% 25 GM / 50ML DISP.SYRIN. IV PRN (09:30)
[2021-05-16] MEDS ORDERED: fentaNYL PF VIAL 100 MCG/2 ML VIAL IVP PRN (09:30)
[2021-05-16] MEDS ORDERED: MORPHINE SULFATE 2 MG/ML INJ. IVP PRN (09:30)
[2021-05-16] MEDS ORDERED: 0.9 % SODIUM CHLORIDE 10 ML DISP.SYRIN. IV PRN (09:30)
[2021-05-16] MEDS ORDERED: diphenhydrAMINE 50 MG/ML VIAL IVP PRN (09:30)
[2021-05-16] MEDS ORDERED: ZOLPIDEM 5 MG TABLET. PO PRN (09:30)
[2021-05-16] MEDS ORDERED: METOCLOPRAMIDE HCL 10 MG/2 ML VIAL. IVP PRN (09:30)
[2021-05-16] MEDS ORDERED: PROCHLORPERAZINE 5 MG TABLET. PO PRN (09:30)
[2021-05-16] MEDS ORDERED: CALCIUM CARBONATE 500 MG TAB.CHEW PO PRN (09:30)
--- NOTE | 2021-05-16 09:45 | OP ---
DATE OF SURGERY: 05/16/2021 PREOPERATIVE DIAGNOSIS: Degenerative joint disease with anterior cruciate ligament insufficiency, left knee. 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 PROCEDURE: Left total knee arthroplasty. SURGEON: Lewis Earl Jr., D.O. INSURANCE LOSS ASSESSOR: Víctor Sawant. ANESTHESIA: General. COMPLICATIONS: None. ESTIMATED BLOOD LOSS: 150 mL. DESCRIPTION OF PROCEDURE: The patient was taken to the operative suite, given a general anesthetic. Left lower extremity was then prepped and draped in a sterile fashion. Incision was made through skin and subcutaneous tissues. Superficial bleeding was coagulated. A medial parapatellar incision was then made. The patella was then everted, measured and cut to the appropriate size, which was a size 32, the drill holes were made through the guide. Skeletonization was undertaken to the proximal tibia, both medially and laterally to release some contractures at that point. The knee was then taken into a flexed position. The drill was placed in the distal femur and the IM guide was placed along with a distal cutting guide, which was affixed to the anterior femur. After this was pinned, the distal cut was then subsequently made. After this was done, the guide for the distal femoral sizing was placed on the distal femoral cut, noted to be a size 5. After this was noted to be good positioning and this was marked for 3 degrees of rotation, the drill holes were made along the epicondylar axis and then the 4-in-1 guide was placed. The anterior, posterior and the chamfer cuts were made after this was affixed to the distal femur. Excess bone was then removed. No other abnormalities were noted. The medial and lateral meniscal remnants were removed. The ACL had already been torn and removed from arthroscopic evaluation previously. The retractors were then placed medially, laterally and posteriorly and after the external tibial guide was placed in appropriate position and orientation and alignment, this was held with pins and then the proximal tibia was cut. This was noted to be a very good flush cut. The trials were then placed. The femur was noted to be a size 4 and after trialing with this, there was excellent tracking of the patellofemoral joint. There was no liftoff. This was balanced very well in both flexion and extension at this point. This was marked for rotation on the tibial side of the joint, held with pins and the drill was placed through the femoral component and this was drilled through with the appropriate drill. After this was done, the trials were then removed from the femur. The actual drill and keel were placed through the tibial guide again and the keel stabilized this region. Small drill holes were made on the medial side of the joint. After this, the tibial guide was removed for better interposition of the cement and then this was copiously irrigated as was throughout the case, but significant amount of irrigation was done at this point. That was done while the cement was then mixed on the back table. Cement was then placed on cut surfaces at this point and then the tibia was impacted first, followed by the femur and the patella was held with a patellar clamp while cement was placed on the back of that as well on the cut area. This was held with a patellar clamp. Following this, this was then thoroughly irrigated and excess cement was removed. The trial poly was removed. The actual polyethylene 9 mm was placed. This was impacted and noted to be secured in the tibial component. This was again taken through range of motion, noted to be stable. Following this, the tourniquet was deflated. No excessive bleeding was noted. The superficial bleeding was coagulated using Bovie knife and then using a running Stratafix, the medial parapatellar incision was then closed very carefully. This was noted to be an excellent closure tight and completely secured. Therefore, after range of motion was noted from 0-120 degrees of flexion, there were no problems with the incision. Therefore, the superficial tissue and skin was reapproximated after local was placed within the capsular region first. Sterile dressing was then applied. The patient was then taken from the operative bed to the postoperative bed, taken to the PACU in stable condition. DARLINE DR: Kian TID: [id number]
[2021-05-16] MEDS ORDERED: MORPHINE SULFATE 2 MG/ML INJ. ONE (09:52)
[2021-05-16] MEDS: MORPHINE SULFATE 2 MG/ML INJ. IVP PRN ×2 (09:56→10:08)
[2021-05-16] MEDS ORDERED: HYDROmorphone 2 MG/ML INJ. ONE (10:15)
--- NOTE | 2021-05-16 10:17 | RAD ---
XR KNEE_LT 1-2 VIEWS Clinical Indication: Reason: POST OP Comparison: None. Findings: AP and crosstable lateral views. There has been total knee arthroplasty. The alignment appears anatom ic. There has been resurfacing of the patella. No periprosthesis fracture is identified. There is noé nt effusion. There is scattered subcutaneous air. IMPRESSION: Post total knee arthroplasty, no acute complication radiographically. Electronically signed by: Jerome Haas MD (05/16/2021 10:15 AM) [facility]
[2021-05-16] MEDS: HYDROmorphone 2 MG/ML INJ. IVP PRN ×3 (10:18→10:45)
--- NOTE | 2021-05-16 10:40 | HP ---
DATE OF SERVICE: 05/16/2021 ADMIT DATE: 05/16/2021 REASON FOR ADMISSION: Reason for evaluation today is severe and significant left knee pain. HISTORY OF PRESENT ILLNESS: The patient is a 60-year-old female, who underwent a left knee arthroscopy for an anterior cruciate ligament reconstruction and debridement; however, at the time of evaluation of that surgery, there was noted to be significant degenerative changes, especially to the medial and patellofemoral compartments of the knee as well as the ACL deficiency. Due to the fact that this was significantly advanced arthritis, the ACL reconstruction was aborted and we discussed this at length with her and her . She has continued to have instability episodes, continues to have significant pain, which is not responding to conservative therapies. She does not wish to continue with any type of injections, therapies, braces, etc. Nothing has helped her to this point at this time. REVIEW OF SYSTEMS: Unremarkable other than the continued left knee pain. MEDICAL HISTORY: Remarkable for hyperlipidemia, hepatitis C, hypertension. SURGICAL HISTORY: , hysterectomy, laparoscopic cholecystectomy, liver biopsy, cholecystectomy, breast surgery in 1999, eye surgery, unknown hernia repair. FAMILY HISTORY: Cardiac disease, hypertension. SOCIAL HISTORY: The patient has never used tobacco. No alcohol use. MEDICATIONS: Include trazodone as well as topiramate, hydrochlorothiazide, phentermine, atenolol, atorvastatin. MEDICATION ALLERGIES: None. PHYSICAL EXAMINATION: She is alert and oriented x 3. She has heart of regular rate and rhythm. Abdominal examination is unremarkable for any significant tenderness with palpation. Bowel sounds normal. Chest is clear to auscultation. Physical exam of the left knee reveals a [id number] knee joint effusion, instability in the AP plane. No instability in the varus, valgus plane. Range of motion is 0-120 degrees of flexion, pain medially throughout the arc of motion with a very positive Apley's test and medial and mildly positive to the lateral compartment. 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 PLAN: At this time, I have talked with her about the diagnosis and the treatment plan. We have already gone over the risks, complications as well as benefits and expectations of left total knee arthroplasty. She wishes to proceed with that at this point. Therefore, this will be done today after she is seen by Anesthesia. PORTIA/FLY/LUIS DR: PORTIA/marisela TID: [id number]
--- NOTE | 2021-05-16 11:19 | PDOC2 ---
CONSULT Date of Consult Date of Consult DATE: 05/16/21 TIME: 11:19 Referring Physician Referring Physician: Dr. Lewis Earl Past Medical History Cardiovascular: HTN, Other Pulmonary: No pertinent hx GI: Other Heme/Onc: No pertinent hx Hepatobiliary: Other Psych: No pertinent hx Rheumatologic: No pertinent hx Infectious disease: No pertinent hx Renal/: No pertinent hx Endocrine: No pertinent hx Past Surgical History Past Surgical History: , Hysterectomy, Other Family History Family History: Diabetes, Heart Disease Social History ALCOHOL: none Drugs: None Current Medications Current Medications Current Medications Morphine Sulfate 5 mg/Ketorolac Tromethamine 30 mg/Ropivacaine 60 ml/Epinephrine HCl 0.5 mg/ Miscellaneous 63 ml @ 63 mls/hr 1X PERIOP ONCE INT ART ; Start 05/16/21 at 06:00; Stop 05/16/21 at 06:59; Status DC Fentanyl Citrate (Fentanyl 2ml Vial) 25 mcg PRN Q5MIN PRN IVP MILD PAIN 1-3; Start 05/16/21 at 06:00; Stop 05/16/21 at 20:00 Fentanyl Citrate (Fentanyl 2ml Vial) 50 mcg PRN Q5MIN PRN IVP MODERATE PAIN 4- 6; Start 05/16/21 at 06:00; Stop 05/16/21 at 20:00 Morphine Sulfate (Morphine Sulfate) 1 mg PRN Q10MIN PRN IVP SEVERE PAIN 7-10 Last administered on 05/16/21at 10:08; Start 05/16/21 at 06:00; Stop 05/16/21 at 20:00 Ringer's Solution 1,000 ml @ 30 mls/hr Q24H IV Last administered on 05/16/21at 07:41; Start 05/16/21 at 06:00; Stop 05/16/21 at 17:59 Hydromorphone HCl (Dilaudid) 0.5 mg PRN Q10MIN PRN IVP SEVERE PAIN 7-10, 2nd CHOICE Last administered on 05/16/21at 10:45; Start 05/16/21 at 06:00; Stop 05/16/21 at 20:00 Prochlorperazine Edisylate (Compazine) 5 mg PACU PRN PRN IVP NAUSEA, MRX1; Start 05/16/21 at 06:00; Stop 05/16/21 at 20:00 Cefazolin Sodium/ Dextrose 50 ml @ 100 mls/hr 1X PREOP PRN IV PRIOR TO PROCEDURE Last administered on 05/16/21at 07:43; Start 05/16/21 at 06:00; Stop 05/16/21 at 18:00 Morphine Sulfate 5 mg/Ketorolac Tromethamine 30 mg/Ropivacaine 60 ml/Epinephrine HCl 0.5 mg/ Miscellaneous 63 ml @ 63 mls/hr 1X PERIOP ONCE INT ART ; Start 05/16/21 at 06:00; Stop 05/16/21 at 06:59; Status Cancel Meloxicam (Mobic) 15 mg 1X PREOP PRN PO PRIOR TO PROCEDURE Last administered on 05/16/21at 06:56; Start 05/16/21 at 06:00; Stop 05/16/21 at 18:00 Gabapentin (Neurontin) 600 mg 1X PREOP PRN PO PRIOR TO PROCEDURE Last administered on 05/16/21at 06:56; Start 05/16/21 at 06:00; Stop 05/16/21 at 18:00 Acetaminophen (Tylenol) 1,000 mg 1X PREOP PRN PO PRIOR TO PROCEDURE Last administered on 05/16/21at 06:56; Start 05/16/21 at 06:00; Stop 05/16/21 at 18:00 Tranexamic Acid 50 ml @ 50 mls/hr 1X PERIOP ONCE INJ Last administered on 05/16at 07:55; Start 05/16/21 at 06:00; Stop 05/16/21 at 06:59; Status DC Tranexamic Acid 50 ml @ 50 mls/hr 1X PERIOP ONCE INJ ; Start 05/16/21 at 08:00; Stop 05/16/21 at 08:59; Status DC Vancomycin HCl (Vancomycin) 1 gm STK-MED ONCE .ROUTE ; Start 05/16/21 at 07:09; Stop 05/16/21 at 07:09; Status DC Fentanyl Citrate (Fentanyl 5ml Vial) 250 mcg STK-MED ONCE .ROUTE ; Start 05/16/21 at 07:18; Stop 05/16/21 at 07:19; Status DC Propofol (Diprivan) 200 mg STK-MED ONCE IV ; Start 05/16/21 at 07:18; Stop 05/16/21 at 07:19; Status DC Lidocaine HCl (Lidocaine Pf 2% Vial) 5 ml STK-MED ONCE .ROUTE ; Start 05/16/21 at 07:18; Stop 05/16/21 at 07:19; Status DC Dexamethasone Sodium Phosphate (Decadron) 4 mg STK-MED ONCE .ROUTE ; Start 05/16/21 at 07:18; Stop 05/16/21 at 07:19; Status DC Ondansetron HCl (Zofran) 4 mg STK-MED ONCE .ROUTE ; Start 05/16/21 at 07:18; Stop 05/16/21 at 07:19; Status DC Tranexamic Acid 100 ml @ As Directed STK-MED ONCE .ROUTE ; Start 05/16/21 at 07:50; Stop 05/16/21 at 07:51; Status DC Ephedrine Sulfate (ePHEDrine PF IN SALINE SYRINGE) 50 mg STK-MED ONCE IV ; Start 05/16/21 at 07:53; Stop 05/16/21 at 07:54; Status DC Sevoflurane (Ultane) 90 ml STK-MED ONCE IH ; Start 05/16/21 at 08:07; Stop 05/16/21 at 08:07; Status DC Morphine Sulfate (Morphine Sulfate) 2 mg PRN Q1HR PRN IVP PAIN; Start 05/16/21 at 09:30 Fentanyl Citrate (Fentanyl 2ml Vial) 25 mcg PRN Q1HR PRN IVP PAIN, 2nd CHOICE; Start 05/16/21 at 09:30 Diphenhydramine HCl (Benadryl) 25 mg PRN Q6HRS PRN IVP ITCHING; Start 05/16/21 at 09:30 Multivitamins (Thera M Plus) 1 tab DAILY PO ; Start 05/17/21 at 09:00 Senna/Docusate Sodium (Senna Plus) 1 tab DAILY PO ; Start 05/17/21 at 09:00 Ferrous Sulfate (Feosol) 325 mg BIDWMEALS PO ; Start 05/16/21 at 17:00 Sodium Chloride 1,000 ml @ 40 mls/hr Q24H IV ; Start 05/16/21 at 09:30 Prochlorperazine Maleate (Compazine) 10 mg PRN Q4HRS PRN PO Nausea/vomiting, 2nd choice; Start 05/16/21 at 09:30 Metoclopramide HCl (Reglan Vial) 10 mg PRN Q4HRS PRN IVP NAUSEA/VOMITING, 3rd CHOICE; Start 05/16/21 at 09:30 Magnesium Hydroxide (Milk Of Magnesia) 2,400 mg 1X PRN PRN PO CONSTIPATION; Start 05/17/21 at 06:00; Stop 05/18/21 at 05:59 Bisacodyl (Dulcolax Supp) 10 mg 1X PRN PRN NE CONSTIPATION; Start 05/17/21 at 16:00; Stop 05/18/21 at 15:59 Zolpidem Tartrate (Ambien) 5 mg PRN QHS PRN PO INSOMNIA, MAY REPEAT IN 1HR; Start 05/16/21 at 09:30 Calcium Carbonate/ Glycine (Tums) 500 mg PRN QID PRN PO INDIGESTION; Start 05/16/21 at 09:30 Sodium Chloride (Normal Saline Flush) 10 ml QSHIFT PRN IV AFTER MEDS AND BLOOD DRAWS; Start 05/16/21 at 09:30 Acetaminophen (Tylenol) 1,000 mg Q6H PO ; Start 05/17/21 at 09:00 Gabapentin (Neurontin) 100 mg Q8HRS PO ; Start 05/17/21 at 06:00 Ondansetron HCl (Zofran) 4 mg Q6HRS IVP ; Start 05/16/21 at 12:00; Stop 05/17/21 at 06:01 Ondansetron HCl (Zofran Odt) 4 mg Q6HRS PO ; Start 05/16/21 at 12:00; Stop 05/17/21 at 06:01 Ondansetron HCl (Zofran) 4 mg PRN Q6HRS PRN IVP Nausea/vomiting, 1st choice; Start 05/17/21 at 12:00 Ondansetron HCl (Zofran Odt) 4 mg PRN Q6HRS PRN PO Nausea/vomiting, 1st choice; Start 05/17/21 at 12:00 Oxycodone HCl (Roxicodone) 5 mg PRN Q4HRS PRN PO Pain score 4-6; Start 05/16/21 at 09:30 Dextrose (Dextrose 50%-Water Syringe) 12.5 gm PRN Q15MIN PRN IV SEE COMMENTS; Start 05/16/21 at 09:30 Cefazolin Sodium/ Dextrose 50 ml @ 100 mls/hr Q6H IV ; Start 05/16/21 at 14:00; Stop 05/17/21 at 02:29 Morphine Sulfate (Morphine Sulfate) 2 mg STK-MED ONCE .ROUTE ; Start 05/16/21 at 09:52; Stop 05/16/21 at 09:53; Status DC Hydromorphone HCl (Dilaudid) 2 mg STK-MED ONCE .ROUTE ; Start 05/16/21 at 10:15; Stop 05/16/21 at 10:16; Status DC Psyllium Hydrophilic Mucilloid (Metamucil Fiber Packet) 1 pkt QHS PO ; Start 05/16/21 at 21:00 Active Scripts Active Reported Meloxicam 15 Mg Tablet 15 Mg PO 1X Klor-Con 10 (Potassium Chloride) 10 Meq Tablet.er 10 Meq PO BID Hydrochlorothiazide Capsule (Hydrochlorothiazide) 12.5 Mg Capsule 12.5 Mg PO DAILY Atorvastatin Calcium 20 Mg Tablet 20 Mg PO HS Phentermine Hcl 15 Mg Capsule 15 Mg PO DAILY Trazodone Hcl 100 Mg Tablet 100 Mg PO HS Atenolol 50 Mg Tablet 1 Tab PO DAILY Allergies Allergies: Coded Allergies: No Known Drug Allergies (Unverified , 04/10/21) Vitals VITALS Vital Signs Date Time Temp Pulse Resp B/P (MAP) Pulse Ox O2 Delivery O2 Flow Rate FiO2 05/16/21 10:33 97.2 64 12 153/72 98 Nasal Cannula 2 97.2 GENO POWELL MD May 16, 2021 11:19
[2021-05-16] MEDS: ONDANSETRON ODT 4 MG TAB.RAPDIS. PO SCH ×2 (12:00→17:28)
[2021-05-16] MEDS: ONDANSETRON PF 4 MG/2 ML VIAL. IVP SCH ×2 (13:57→17:28)
[2021-05-16] MEDS: oxyCODONE IR 5 MG TABLET PO PRN ×2 (15:01→21:12)
[2021-05-16] MEDS ORDERED: ALBUTEROL SULFATE 2.5 MG/3 ML NEBU. NEB PRN (16:45)
--- NOTE | 2021-05-16 16:50 | PDOC1 ---
History and Physical Date of Admission Date of Admission DATE: 05/16/21 TIME: 16:40 Identification/Chief Complaint Chief Complaint Left knee osteoarthritis Source Source: Chart review, Patient History of Present Illness History of Present Illness Ms Starr is a 60yo female with PMHx HLD, HTN, insomnia, h/o hep c s/p treatment in [facility] who comes to [facility] for elective left total knee arthroplasty. She underwent left knee arthroscopy for ACL repair but was noted with significant degenerative joint disease. Conservative measures had failed to help her knee pain. She is seen postoperatively after left TKA and is in pain she feels okay no shortness of breath or chest pain. A little bit of tingling in her left toes but pulses intact and able to move her foot full range of motion. Vital signs stable not requiring O2. She is somewhat drowsy. Her medications reviewed including trazodone and atorvastatin albuterol and phentermine. Past Medical History Cardiovascular: HTN, Other Pulmonary: No pertinent hx GI: Other Heme/Onc: No pertinent hx Hepatobiliary: Other Psych: No pertinent hx Rheumatologic: No pertinent hx Infectious disease: No pertinent hx Renal/: No pertinent hx Endocrine: No pertinent hx Past Surgical History Past Surgical History , hysterectomy, laparoscopic cholecystectomy, liver biopsy, cholecystectomy, breast surgery in 1999, eye surgery, unknown hernia repair. Past Surgical History: , Total knee replacement (Left - 05/16/2021), Hysterectomy, Other Family History Family History: Diabetes, Heart Disease Social History Smoke: No ALCOHOL: none Drugs: None Current Medications Current Medications Current Medications Morphine Sulfate 5 mg/Ketorolac Tromethamine 30 mg/Ropivacaine 60 ml/Epinephrine HCl 0.5 mg/ Miscellaneous 63 ml @ 63 mls/hr 1X PERIOP ONCE INT ART ; Start 05/16/21 at 06:00; Stop 05/16/21 at 06:59; Status DC Fentanyl Citrate (Fentanyl 2ml Vial) 25 mcg PRN Q5MIN PRN IVP MILD PAIN 1-3; Start 05/16/21 at 06:00; Stop 05/16/21 at 20:00 Fentanyl Citrate (Fentanyl 2ml Vial) 50 mcg PRN Q5MIN PRN IVP MODERATE PAIN 4- 6; Start 05/16/21 at 06:00; Stop 05/16/21 at 20:00 Morphine Sulfate (Morphine Sulfate) 1 mg PRN Q10MIN PRN IVP SEVERE PAIN 7-10 Last administered on 05/16/21at 10:08; Start 05/16/21 at 06:00; Stop 05/16/21 at 20:00 Ringer's Solution 1,000 ml @ 30 mls/hr Q24H IV Last administered on 05/16/21at 07:41; Start 05/16/21 at 06:00; Stop 05/16/21 at 17:59 Hydromorphone HCl (Dilaudid) 0.5 mg PRN Q10MIN PRN IVP SEVERE PAIN 7-10, 2nd CHOICE Last administered on 05/16/21at 10:45; Start 05/16/21 at 06:00; Stop 05/16/21 at 20:00 Prochlorperazine Edisylate (Compazine) 5 mg PACU PRN PRN IVP NAUSEA, MRX1; Start 05/16/21 at 06:00; Stop 05/16/21 at 20:00 Cefazolin Sodium/ Dextrose 50 ml @ 100 mls/hr 1X PREOP PRN IV PRIOR TO PROCEDURE Last administered on 05/16/21at 07:43; Start 05/16/21 at 06:00; Stop 05/16/21 at 18:00 Morphine Sulfate 5 mg/Ketorolac Tromethamine 30 mg/Ropivacaine 60 ml/Epinephrine HCl 0.5 mg/ Miscellaneous 63 ml @ 63 mls/hr 1X PERIOP ONCE INT ART ; Start 05/16/21 at 06:00; Stop 05/16/21 at 06:59; Status Cancel Meloxicam (Mobic) 15 mg 1X PREOP PRN PO PRIOR TO PROCEDURE Last administered on 05/16/21at 06:56; Start 05/16/21 at 06:00; Stop 05/16/21 at 18:00 Gabapentin (Neurontin) 600 mg 1X PREOP PRN PO PRIOR TO PROCEDURE Last administered on 05/16/21at 06:56; Start 05/16/21 at 06:00; Stop 05/16/21 at 18:00 Acetaminophen (Tylenol) 1,000 mg 1X PREOP PRN PO PRIOR TO PROCEDURE Last administered on 05/16/21at 06:56; Start 05/16/21 at 06:00; Stop 05/16/21 at 18:00 Tranexamic Acid 50 ml @ 50 mls/hr 1X PERIOP ONCE INJ Last administered on 05/16/21at 07:55; Start 05/16/21 at 06:00; Stop 05/16/21 at 06:59; Status DC Tranexamic Acid 50 ml @ 50 mls/hr 1X PERIOP ONCE INJ ; Start 05/16/21 at 08:00; Stop 05/16/21 at 08:59; Status DC Vancomycin HCl (Vancomycin) 1 gm STK-MED ONCE .ROUTE ; Start 05/16/21 at 07:09; Stop 05/16/21 at 07:09; Status DC Fentanyl Citrate (Fentanyl 5ml Vial) 250 mcg STK-MED ONCE .ROUTE ; Start 05/16/21 at 07:18; Stop 05/16/21 at 07:19; Status DC Propofol (Diprivan) 200 mg STK-MED ONCE IV ; Start 05/16/21 at 07:18; Stop 05/16/21 at 07:19; Status DC Lidocaine HCl (Lidocaine Pf 2% Vial) 5 ml STK-MED ONCE .ROUTE ; Start 05/16/21 at 07:18; Stop 05/16/21 at 07:19; Status DC Dexamethasone Sodium Phosphate (Decadron) 4 mg STK-MED ONCE .ROUTE ; Start 05/16/21 at 07:18; Stop 05/16/21 at 07:19; Status DC Ondansetron HCl (Zofran) 4 mg STK-MED ONCE .ROUTE ; Start 05/16/21 at 07:18; Stop 05/16/21 at 07:19; Status DC Tranexamic Acid 100 ml @ As Directed STK-MED ONCE .ROUTE ; Start 05/16/21 at 07:50; Stop 05/16/21 at 07:51; Status DC Ephedrine Sulfate (ePHEDrine PF IN SALINE SYRINGE) 50 mg STK-MED ONCE IV ; Start 05/16/21 at 07:53; Stop 05/16/21 at 07:54; Status DC Sevoflurane (Ultane) 90 ml STK-MED ONCE IH ; Start 05/16/21 at 08:07; Stop 05/16/21 at 08:07; Status DC Morphine Sulfate (Morphine Sulfate) 2 mg PRN Q1HR PRN IVP PAIN; Start 05/16/21 at 09:30 Fentanyl Citrate (Fentanyl 2ml Vial) 25 mcg PRN Q1HR PRN IVP PAIN, 2nd CHOICE; Start 05/16/21 at 09:30 Diphenhydramine HCl (Benadryl) 25 mg PRN Q6HRS PRN IVP ITCHING; Start 05/16/21 at 09:30 Multivitamins (Thera M Plus) 1 tab DAILY PO ; Start 05/17/21 at 09:00 Senna/Docusate Sodium (Senna Plus) 1 tab DAILY PO ; Start 05/17/21 at 09:00 Ferrous Sulfate (Feosol) 325 mg BIDWMEALS PO ; Start 05/16/21 at 17:00 Sodium Chloride 1,000 ml @ 40 mls/hr Q24H IV ; Start 05/16/21 at 09:30 Prochlorperazine Maleate (Compazine) 10 mg PRN Q4HRS PRN PO Nausea/vomiting, 2nd choice; Start 05/16/21 at 09:30 Metoclopramide HCl (Reglan Vial) 10 mg PRN Q4HRS PRN IVP NAUSEA/VOMITING, 3rd CHOICE; Start 05/16/21 at 09:30 Magnesium Hydroxide (Milk Of Magnesia) 2,400 mg 1X PRN PRN PO CONSTIPATION; Start 05/17/21 at 06:00; Stop 05/18/21 at 05:59 Bisacodyl (Dulcolax Supp) 10 mg 1X PRN PRN HI CONSTIPATION; Start 05/17/21 at 16:00; Stop 05/18/21 at 15:59 Zolpidem Tartrate (Ambien) 5 mg PRN QHS PRN PO INSOMNIA, MAY REPEAT IN 1HR; Start 05/16/21 at 09:30 Calcium Carbonate/ Glycine (Tums) 500 mg PRN QID PRN PO INDIGESTION; Start 05/16/21 at 09:30 Sodium Chloride (Normal Saline Flush) 10 ml QSHIFT PRN IV AFTER MEDS AND BLOOD DRAWS; Start 05/16/21 at 09:30 Acetaminophen (Tylenol) 1,000 mg Q6H PO ; Start 05/17/21 at 09:00 Gabapentin (Neurontin) 100 mg Q8HRS PO ; Start 05/17/21 at 06:00 Ondansetron HCl (Zofran) 4 mg Q6HRS IVP Last administered on 05/16/21at 13:57; Start 05/16/21 at 12:00; Stop 05/17/21 at 06:01 Ondansetron HCl (Zofran Odt) 4 mg Q6HRS PO ; Start 05/16/21 at 12:00; Stop 05/17/21 at 06:01 Ondansetron HCl (Zofran) 4 mg PRN Q6HRS PRN IVP Nausea/vomiting, 1st choice; Start 05/17/21 at 12:00 Ondansetron HCl (Zofran Odt) 4 mg PRN Q6HRS PRN PO Nausea/vomiting, 1st choice; Start 05/17/21 at 12:00 Oxycodone HCl (Roxicodone) 5 mg PRN Q4HRS PRN PO Pain score 4-6 Last administered on 05/16/21at 15:01; Start 05/16/21 at 09:30 Dextrose (Dextrose 50%-Water Syringe) 12.5 gm PRN Q15MIN PRN IV SEE COMMENTS; Start 05/16/21 at 09:30 Cefazolin Sodium/ Dextrose 50 ml @ 100 mls/hr Q6H IV Last administered on 05/16/21at 13:56; Start 05/16/21 at 14:00; Stop 05/17/21 at 02:29 Morphine Sulfate (Morphine Sulfate) 2 mg STK-MED ONCE .ROUTE ; Start 05/16/21 at 09:52; Stop 05/16/21 at 09:53; Status DC Hydromorphone HCl (Dilaudid) 2 mg STK-MED ONCE .ROUTE ; Start 05/16/21 at 10:15; Stop 05/16/21 at 10:16; Status DC Psyllium Hydrophilic Mucilloid (Metamucil Fiber Packet) 1 pkt QHS PO ; Start 05/16/21 at 21:00 Active Scripts Active Reported Meloxicam 15 Mg Tablet 15 Mg PO 1X Klor-Con 10 (Potassium Chloride) 10 Meq Tablet.er 10 Meq PO BID Hydrochlorothiazide Capsule (Hydrochlorothiazide) 12.5 Mg Capsule 12.5 Mg PO DAILY Atorvastatin Calcium 20 Mg Tablet 20 Mg PO HS Phentermine Hcl 15 Mg Capsule 15 Mg PO DAILY Trazodone Hcl 100 Mg Tablet 100 Mg PO HS Atenolol 50 Mg Tablet 1 Tab PO DAILY Allergies Allergies: Coded Allergies: No Known Drug Allergies (Unverified , 04/10/21) ROS General: No: Chills, Night Sweats, Fatigue, Malaise, Appetite, Other PSYCHOLOGICAL ROS: No: Anxiety, Behavioral Disorder, Concentration difficultie, Decreased libido, Depression, Disorientation, Hallucinations, Hostility, Irritablity, Memory difficulties, Mood Swings, Obsessive thoughts, Physical abuse, Sexual abuse, Sleep disturbances, Suicidal ideation, Other Eyes: No Blurry vision, No Decreased vision, No Double vision, No Dry eyes, No Excessive tearing, No Eye Pain, No Itchy Eyes, No Loss of vision, No Photophobia, No Scotomata, No Uses contacts, No Uses glasses, No Other HEENT: No: Heacaches, Visual Changes, Hearing change, Nasal congestion, Nasal discharge, Oral lesions, Sinus pain, Sore Throat, Epistaxis, Sneezing, Snoring, Tinnitus, Vertigo, Vocal changes, Other ALLERGY AND IMMUNOLOGY: No: Hives, Insect Bite Sensitivity, Itchy/Watery Eyes, Nasal Congestion, Post Nasal Drip, Seasonal Allergies, Other Hematological and Lymphatic: No: Bleeding Problems, Blood Clots, Blood Transfusions, Brusing, Night Sweats, Pallor, Swollen Lymph Nodes, Other ENDOCRINE: No: Breast Changes, Galactorrhea, Hair Pattern Changes, Hot Flashes, Malaise/lethargy, Mood Swings, Palpitations, Polydipsia/polyuria, Skin Changes, Temperature Intolerance, Unexpected Weight Changes, Other Breast: No New/Changing Breast Lumps, No Nipple changes, No Nipple discharge, No Other Respiratory: No: Cough, Hemoptysis, Orthopnea, Pleuritic Pain, Shortness of breath, SOB with excertion, Sputum Changes, Stridor, Tachypnea, Wheezing, Other Cardiovascular: No Chest Pain, No Palpitations, No Orthopnea, No Paroxysmal Noc. Dyspnea, No Edema, No Lt Headedness, No Other Gastrointestinal: No Nausea, No Vomiting, No Abdominal Pain, No Diarrhea, No Constipation, No Melena, No Hematochezia, No Other Genitourinary: No Dysuria, No Frequency, No Incontinence, No Hematuria, No Retention, No Discharge, No Urgency, No Pain, No Flank Pain, No Other, No , No , No , No , No , No , No Musculoskeletal: Yes Gait Disturbance, Yes Joint Pain; No Joint Stiffness, No Joint Swelling, No Muscle Pain, No Muscular Weakness, No Pain In:, No Swelling In:, No Other Skin: No Dry Skin, No Eczema, No Hair Changes, No Lumps, No Mole Changes, No Mo ttling, No Nail Changes, No Pruritus, No Rash, No Skin Lesion Changes, No Other, No Acne Physical Exam General: Alert, Oriented X3, Cooperative, mild distress HEENT: Atraumatic, PERRLA, EOMI, Mucous membr. moist/pink Lungs: Clear to auscultation, Normal air movement Heart: S1S2, RRR, no thrills, no rubs, no gallops, no murmurs Abdomen: Normal bowel sounds, Soft, No tenderness, No hepatosplenomegaly, No masses Rectal Exam: not examined Extremities: No clubbing, No cyanosis, No edema, Normal pulses Skin: No rashes, No breakdown, Other (left knee wrapped, immobilized) Neuro: Normal speech, Strength at 5/5 X4 ext, Normal tone, Sensation intact, Cranial nerves 3-12 NL, Reflexes 2+ Psych/Mental Status: Mental status NL, Mood NL Vitals Vitals Vital Signs Date Time Temp Pulse Resp B/P (MAP) Pulse Ox O2 Delivery O2 Flow Rate FiO2 05/16/21 15:32 97.5 128/63 (84) Room Air 97.5 05/16/21 13:45 72 05/16/21 12:45 18 05/16/21 11:00 2.0 05/16/21 11:00 98 Images Images Left knee radiograph total arthroplasty VTE Prophylaxis Ordered VTE Prophylaxis Devices: Yes VTE Pharmacological Prophylaxi: Yes Assessment/Plan Assessment/Plan A/P: Left knee OA, torn ACL - s/p TKA, seen post-op in recovery. Therapy ordered incidents from her bowel regimen pain control. HLD - cont statin Obesity - counseled on lifestyle modification. Would hold phentermine Insomnia - cont trazodone h/o hep c in [facility] FEN - Regular diet PPX - ASA per ortho FULL CODE Dispo - inpatient Justifications for Admission Other Justification GENO POWELL MD May 16, 2021 16:49
[2021-05-16] MEDS: FERROUS SULFATE 325 MG TABLET. PO SCH (17:28)
[2021-05-16] MEDS: PSYLLIUM HUSK (SUGAR FREE) 1 PKT PACKET PO SCH (21:00)
[2021-05-16] MEDS: ATORVASTATIN CALCIUM 20 MG TABLET PO SCH (21:12)
[2021-05-16] MEDS: traZODone 100 MG TABLET. PO SCH (21:12)
[2021-05-17 03:00] VITALS: BP 120/63
[2021-05-17] MEDS: GABAPENTIN 100 MG CAPSULE. PO SCH ×3 (05:26→21:47)
[2021-05-17] MEDS: oxyCODONE IR 5 MG TABLET PO PRN ×3 (05:26→13:16)
[2021-05-17] MEDS: ONDANSETRON ODT 4 MG TAB.RAPDIS. PO SCH ×2 (06:00)
[2021-05-17] MEDS: ONDANSETRON PF 4 MG/2 ML VIAL. IVP SCH ×2 (06:00)
[2021-05-17] MEDS ORDERED: MAGNESIUM HYDROXIDE 2,400 MG/30 ML ORAL.SUSP. PO PRN (06:00)
[2021-05-17 06:39] LABS: ALBUMIN 3.1 g/dL (3.4-5.0); ALBUMIN/GLOBULIN RATIO 0.9 (1.0-1.7); CREATININE 0.9 mg/dL (0.6-1.0); GFR 77.5; POTASSIUM 3.9 mmol/L (3.5-5.1); TOTAL BILIRUBIN 0.2 mg/dL (0.2-1.0); TOTAL PROTEIN 6.4 g/dL (6.4-8.2)
[2021-05-17 07:38] VITALS: BP 120/63
[2021-05-17] MEDS: SENNOSIDES/DOCUSATE 8.6/50MG TABLET. PO SCH (08:36)
[2021-05-17] MEDS: FERROUS SULFATE 325 MG TABLET. PO SCH ×2 (08:37→17:30)
[2021-05-17] MEDS: MULTIVITAMIN with MINERAL TABLET. PO SCH (08:37)
[2021-05-17] MEDS: ACETAMINOPHEN 500 MG TABLET PO SCH ×2 (08:37→16:02)
[2021-05-17] MEDS: IV NORMAL SALINE 1000ML BAG 1,000 ML IV SCH ×2 (09:30→23:12)
[2021-05-17 11:10] VITALS: BP 134/68
[2021-05-17] MEDS ORDERED: ONDANSETRON PF 4 MG/2 ML VIAL. IVP PRN (12:00)
[2021-05-17] MEDS ORDERED: ONDANSETRON ODT 4 MG TAB.RAPDIS. PO PRN (12:00)
--- NOTE | 2021-05-17 13:09 | PDOC ---
[facility] PROGRESS NOTE Date of Service DOS: DATE: 05/17/21 TIME: 13:06 Chief Complaint Chief Complaint Left knee OA, torn ACL - s/p TKA, seen post-op in recovery. Therapy ordered incidents from her bowel regimen pain control. HLD - cont statin Obesity - counseled on lifestyle modification. Would hold phentermine Insomnia - cont trazodone h/o hep c in SVR History of Present Illness History of Present Illness pain ok, sore today, no event Vitals/I&O Vitals/I&O: Vital Signs Date Time Temp Pulse Resp B/P (MAP) Pulse Ox O2 Delivery O2 Flow Rate FiO2 05/17/21 11:10 98.4 82 18 134/68 (90) 97 Room Air 98.4 05/16/21 11:00 2.0 I & O 05/16/21 05/16/21 05/17/21 14:59 22:59 06:59 Intake Total 1370 ml 600 ml Output Total 150 ml 550 ml Balance 1220 ml 50 ml Physical Exam General: Alert, Oriented X3, Cooperative, mild distress Abdomen: Normal bowel sounds, Soft, No tenderness, No hepatosplenomegaly, No masses Extremities: No clubbing, No cyanosis, No edema, Normal pulses Skin: No rashes, No breakdown, Other (left knee wrapped, immobilized) Labs Labs: Laboratory Tests Test 05/17/21 04:10 Sodium Level 138 mmol/L (136-145) Potassium Level 3.9 mmol/L (3.5-5.1) Chloride Level 105 mmol/L (98-107) Carbon Dioxide Level 28 mmol/L (21-32) Anion Gap 5 (6-14) Blood Urea Nitrogen 17 mg/dL (7-20) Creatinine 0.9 mg/dL (0.6-1.0) Estimated GFR (Cockcroft-Gault) 77.5 BUN/Creatinine Ratio 19 (6-20) Glucose Level 114 mg/dL (70-99) Calcium Level 8.0 mg/dL (8.5-10.1) Total Bilirubin 0.2 mg/dL (0.2-1.0) Aspartate Amino Transf (AST/SGOT) 24 U/L (15-37) Alanine Aminotransferase (ALT/SGPT) 41 U/L (14-59) Alkaline Phosphatase 83 U/L (46-116) Total Protein 6.4 g/dL (6.4-8.2) Albumin 3.1 g/dL (3.4-5.0) Albumin/Globulin Ratio 0.9 (1.0-1.7) Comment Review of Relevant I have reviewed the following items alia (where applicable) has been applied. Medications: Current Medications Medications (Trade) Dose Ordered Sig/Pravin Route PRN Reason Start Time Stop Time Status Last Admin Dose Admin Multivitamins (Thera M Plus) 1 tab DAILY PO 05/17/21 09:00 05/17/21 08:37 Senna/Docusate Sodium (Senna Plus) 1 tab DAILY PO 05/17/21 09:00 05/17/21 08:36 Ferrous Sulfate (Feosol) 325 mg BIDWMEALS PO 05/16/21 17:00 05/17/21 08:37 Acetaminophen (Tylenol) 1,000 mg Q6H PO 05/17/21 09:00 05/17/21 08:37 Gabapentin (Neurontin) 100 mg Q8HRS PO 05/17/21 06:00 05/17/21 05:26 Cefazolin Sodium/ Dextrose 50 ml @ 100 mls/hr Q6H IV 05/16/21 14:00 05/17/21 02:29 DC 05/17/21 02:38 Atorvastatin Calcium (Lipitor) 20 mg HS PO 05/16/21 21:00 05/16/21 21:12 Trazodone HCl (Desyrel) 100 mg HS PO 05/16/21 21:00 05/16/21 21:12 Justifications for Admission Other Justification SILVERIO NIETO MD May 17, 2021 13:09
[2021-05-17] MEDS: ATENOLOL 50 MG TABLET. PO SCH (13:18)
[2021-05-17 15:00] VITALS: BP 150/72
[2021-05-17] MEDS ORDERED: BISACODYL 10 MG SUPP.RECT. PR PRN (16:00)
[2021-05-17] MEDS: oxyCODONE/APAP 7.5/325 1 TAB TABLET PO PRN ×2 (17:31→21:43)
[2021-05-17 19:20] VITALS: BP 135/65
--- NOTE | 2021-05-17 19:45 | PN ---
DATE: 05/17/2021 She is postoperative day #1 for a left total knee arthroplasty. She is doing very well at this point as far as her physical therapy. We were having some difficulty with getting her pain under control. Therefore, we will change that over to Percocet 7.5 mg and also she is to be on 325 mg of aspirin twice a day. This was ordered, but unfortunately did not transfer over on the orders on the computer. She has no signs or symptoms of active bleeding at this point. The dressings are intact. There were no signs or symptoms of DVT. No signs or symptoms of any issues or problems today. Calf is very soft today. Distal neurovascular status is fully intact. We will continue to see if we can get the pain under control this evening and until tomorrow, to make sure she is doing well with physical and occupational therapy and see if we can get her home medication very safely. CASANDRA DR: Kian TID: [phone]
[2021-05-17] MEDS: ASPIRIN ENTERIC COATED 325 MG TABLET.DR. PO SCH (21:42)
[2021-05-17] MEDS: ATORVASTATIN CALCIUM 20 MG TABLET PO SCH (21:42)
[2021-05-17] MEDS: traZODone 100 MG TABLET. PO SCH (21:42)
[2021-05-17] MEDS: PSYLLIUM HUSK (SUGAR FREE) 1 PKT PACKET PO SCH (21:43)
[2021-05-17 23:16] VITALS: BP 154/77
[2021-05-18] MEDS: oxyCODONE/APAP 7.5/325 1 TAB TABLET PO PRN ×5 (01:45→20:29)
[2021-05-18 03:18] VITALS: BP 136/60
[2021-05-18] MEDS: GABAPENTIN 100 MG CAPSULE. PO SCH ×3 (05:57→20:28)
[2021-05-18 07:15] VITALS: BP 142/78
[2021-05-18] MEDS: FERROUS SULFATE 325 MG TABLET. PO SCH (08:41)
[2021-05-18] MEDS: MULTIVITAMIN with MINERAL TABLET. PO SCH (08:42)
[2021-05-18] MEDS: ASPIRIN ENTERIC COATED 325 MG TABLET.DR. PO SCH ×2 (08:42→20:28)
[2021-05-18] MEDS: SENNOSIDES/DOCUSATE 8.6/50MG TABLET. PO SCH (08:43)
[2021-05-18] MEDS: ATENOLOL 50 MG TABLET. PO SCH (08:43)
[2021-05-18 11:00] VITALS: BP 163/74
[2021-05-18] MEDS ORDERED: ASPI325T11 PO (11:49)
[2021-05-18] MEDS ORDERED: POLYETHYLENE GLYCOL 3350 17 GM PACKET. PO ONE (12:00)
[2021-05-18] MEDS ORDERED: BISACODYL 5 MG TABLET.DR. PO ONE (12:00)
--- NOTE | 2021-05-18 12:03 | PDOC ---
[facility] [facility] PROGRESS NOTE Date of Service DOS: DATE: 05/18/21 TIME: 12:01 Chief Complaint Chief Complaint Left knee OA, torn ACL - s/p TKA, seen post-op in recovery. Therapy ordered incidents from her bowel regimen pain control. HLD - cont statin Obesity - BMI 36 Insomnia - cont trazodone h/o hep c in SVR constipation, post op History of Present Illness History of Present Illness 05/18, no stool,, will stop the iron, add dulcolax, miralax pain is still up, poor control of pain, could only walk about 50 feet due to pain this AM, should improve, she feels unstable to try to DC today 2/3 pain ok, sore today, no event Vitals/I&O Vitals/I&O: Vital Signs Date Time Temp Pulse Resp B/P (MAP) Pulse Ox O2 Delivery O2 Flow Rate FiO2 05/18/21 11:00 98.3 74 18 163/74 (103) 96 Room Air 98.3 I & O 05/17/21 05/17/21 05/18/21 15:00 23:00 07:00 Intake Total 200 ml 240 ml Balance 200 ml 240 ml Physical Exam General: Alert, Oriented X3, Cooperative, mild distress Abdomen: Normal bowel sounds, Soft, No tenderness, No hepatosplenomegaly, No masses Extremities: No clubbing, No cyanosis, No edema, Normal pulses Skin: No rashes, No breakdown, Other (left knee wrapped, immobilized) Comment Review of Relevant I have reviewed the following items alia (where applicable) has been applied. Medications: Current Medications Medications (Trade) Dose Ordered Sig/Pravin Route PRN Reason Start Time Stop Time Status Last Admin Dose Admin Aspirin (Ecotrin) 325 mg BID PO 05/17/21 21:00 05/18/21 08:42 Oxycodone/ Acetaminophen (Percocet 7.5/ 325) 1 tab PRN Q4HRS PRN PO MODERATE TO SEVERE PAIN 05/17/21 17:15 05/18/21 08:42 Justifications for Admission Other Justification SILVERIO NIETO MD May 18, 2021 12:03
[2021-05-18 12:44] LABS: HEMATOCRIT 33.3 % (36.0-47.0); HEMOGLOBIN 10.6 g/dL (12.0-15.5)
--- NOTE | 2021-05-18 14:07 | PATHOLOGY ---
[facility] Accession Number: [id number] . 01 Material submitted: . knee - L KNEE BONE AND TISSUE. Modifiers: left . 01 Clinical history: . OSTEOARTHRITIS L TOTAL KNEE ARTHROPLASTY . 02 Diagnosis: Segments of bone and soft tissue, left total knee arthroplasty: - Degenerative arthritis. - Focal erosion of synovial lining with early organizing hemorrhage and underlying reactive fibrosis. (JPM:pit; 05/18/2021) QTP 05/18/2021 1159 Local . 02 Electronically signed: . Franco Price MD, Pathologist NPI- [id number] . 01 Gross description: . The specimen is received in formalin, labeled "Starr Nichel, L knee bone and tissue" and consists of multiple hard irregular bone fragments with soft tissue and portion of meniscus (13.9 x 13.9 x 1.6 cm in aggregate). The articular surfaces are voss-pink, smooth and focally granular with 5 areas of articular surface erosion (ranging from 0.8 x 0.7 cm to 2.1 x 1.7 cm). A focal area of articular surface softening (0.9 x 0.5 cm) is identified. There are no areas of eburnation or osteophytic growths identified. Aircraft Inspector sections are submitted in A1 following decalcification.(YSLETA DEL SUR; 05/17/2021) DKA/DKA 05/18/2021 1158 Local . 02 Pathologist provided ICD-10: M17.12 . 02 CPT . 347778, [id number] Specimen Comment: A courtesy copy of this report has been sent to [phone], [phone] Specimen Comment: [id number], Specimen Comment: Report sent to , DR GARCIA / DR POWELL Performed at: 01 [facility] [address], [place], [place] [id number] MD Marquise Ortiz MD Phone: [phone] Performed at: 02 [facility] [address] [place], [place] [id number] MD Franco Price MD Phone: [phone]
--- NOTE | 2021-05-18 14:33 | PN ---
DATE: 05/18/2021 She is here today, postoperative day #2 for a total knee replacement on that left side. She is actually doing very well at this point as far as her physical and occupational therapy with a few deficits noted at this point. I think her biggest issue at this point is getting under control the pain. We have never gotten that completely under control, so that she can do all of her activities she would like to do with physical therapy; however, the dressings are intact. No signs or symptoms of significant drainage or redness. There is no significant swelling or signs of DVT at this point. Distal neurovascular status is fully intact. Range of motion is 0-90 degrees at this point. Quad is doing very well as far as firing muscle tone au. I will see her back for reevaluation and follow her appropriately for her progression of physical and occupational therapy. She will continue with DVT prophylaxis. ZEINAB/TERE DR: Kian TID: [id number]
[2021-05-18 14:54] VITALS: BP 157/80
[2021-05-18 19:20] VITALS: BP 104/59
[2021-05-18] MEDS: traZODone 100 MG TABLET. PO SCH (20:28)
[2021-05-18] MEDS: ATORVASTATIN CALCIUM 20 MG TABLET PO SCH (20:29)
[2021-05-18] MEDS: PSYLLIUM HUSK (SUGAR FREE) 1 PKT PACKET PO SCH (20:32)
[2021-05-18 23:41] VITALS: BP 153/68
[2021-05-19] MEDS: oxyCODONE/APAP 7.5/325 1 TAB TABLET PO PRN ×3 (00:06→11:18)
[2021-05-19] MEDS: oxyCODONE IR 5 MG TABLET PO PRN ×2 (03:01→09:10)
[2021-05-19 03:32] VITALS: BP 108/63
[2021-05-19] MEDS: GABAPENTIN 100 MG CAPSULE. PO SCH (05:39)
[2021-05-19 07:00] VITALS: BP 134/74
[2021-05-19 08:16] LABS: HEMATOCRIT 29.1 % (36.0-47.0); HEMOGLOBIN 9.5 g/dL (12.0-15.5)
[2021-05-19] MEDS: SENNOSIDES/DOCUSATE 8.6/50MG TABLET. PO SCH (09:00)
[2021-05-19] MEDS ORDERED: POLYETHYLENE GLYCOL 3350 17 GM PACKET. PO SCH (09:00)
[2021-05-19] MEDS: ATENOLOL 50 MG TABLET. PO SCH (09:00)
[2021-05-19] MEDS: MULTIVITAMIN with MINERAL TABLET. PO SCH (09:09)
[2021-05-19] MEDS: ASPIRIN ENTERIC COATED 325 MG TABLET.DR. PO SCH (09:09)
[2021-05-19 11:00] VITALS: BP 156/72
[2021-05-19] MEDS ORDERED: SENN-209 PO (11:21)
[2021-05-19] MEDS ORDERED: OXYC1TAB19 PO (11:21)
--- NOTE | 2021-05-19 11:24 | SNU/HH DC ---
DISCHARGE WITH HOME HEALTH DISCHARGE INFORMATION: Discharge Date: May 19, 2021 Final Diagnosis: knee pain, s/p left total knee obese, BMI 35 Condition on Discharge: Stable CODE STATUS: Code Status: Full HOME HEALTH: Face to Face: I certify this patient is under my care and that I, had a face to face encounter that meets the physician face to face encounter requirements with this patient on05/19 Prison For: Medication Management, Pain Management, Other: (prevent constipation) RN For Eval/Treatment: Yes Physical Therapy For: Evalulation/Treatment Occupational Therapy For: Evaluation/Treatment Pt Meets Homebound Status: Unsteady balance w/ amb,, Limited distance walking (w/ pain) POST DISCHARGE ORDERS: Activity Instructions for Disc: Activity as tolerated, Avoid exertion Weight Bearing Status after Di: Full weight bearing Wound/Incision Care: Ice to area for comfort, Keep wound elevated, Do not change dressing FOLLOW-UP: Follow up with: Dr. Earl as dir. TREATMENT/EQUIPMENT ORDERS: Adaptive Equipment Issued: Front wheeled walker CERTIFICATION STATEMENT: Certification Statement: Certification Statement: Based on the above finding, I certify that this patient is confined to the home and needs intermittent retirement care, physical therapy and/or speech therapy, or continues to need occupational therapy.~ This patient is under my care, and I have initiated the establishment of the plan of care.~ This patient will be followed by myself or a community physician who will periodically review the plan of care. Home Meds Active Scripts Sennosides/Docusate Sodium (Stool Softener-Stimulant Lax) 1 Each Tablet, 1 TAB PO BID PRN for prevent constipation, #60 TAB Prov:SILVERIO NIETO MD 05/19/21 Oxycodone/Apap 7.5-325 (PERCOCET 7.5-325 MG TABLET ) 1 Each Tablet, 1 TAB PO P RN Q4HRS PRN for MODERATE TO SEVERE PAIN, #35 TAB Prov:SILVERIO NIETO MD 05/19/21 Aspirin (ASPIRIN EC) 325 Mg Tablet.dr, 325 MG PO BID for post surg, #60 TAB.SR Prov:SILVERIO NIETO MD 05/18/21 Reported Medications Potassium Chloride (Klor-Con 10) 10 Meq Tablet.er, 10 MEQ PO BID for treat low potassium level, TAB.SR 05/10/21 Hydrochlorothiazide (HYDROCHLOROTHIAZIDE CAPSULE ) 12.5 Mg Capsule, 12.5 MG PO DAILY for DIURETIC, CAP 0 Refills 04/12/21 Atorvastatin Calcium (ATORVASTATIN CALCIUM) 20 Mg Tablet, 20 MG PO HS for FOR CHOLESTEROL, #30 TAB 0 Refills 03/14/21 Phentermine Hcl (PHENTERMINE HCL) 15 Mg Capsule, 15 MG PO DAILY for WEIGHT LOSS, CAP 03/14/21 Trazodone Hcl (TRAZODONE HCL) 100 Mg Tablet, 100 MG PO HS, TAB 05/28/14 Atenolol (ATENOLOL) 50 Mg Tablet, 1 TAB PO DAILY, #30 TAB 5 Refills 05/27/14 Discontinued Reported Medications Meloxicam (MELOXICAM) 15 Mg Tablet, 15 MG PO 1X for , TAB 05/16/21 SILVERIO NIETO MD May 19, 2021 11:24
--- NOTE | 2021-05-19 11:26 | PDOC3 ---
Discharge Summary Visit Information Date of Admission: May 16, 2021 Date of Discharge: May 19, 2021 Final Diagnosis Left knee OA, torn ACL - s/p TKA, seen post-op in recovery. Therapy ordered incidents from her bowel regimen pain control. HLD - cont statin Obesity - BMI 36 Insomnia - cont trazodone h/o hep c in SVR constipation, post op Brief Hospital Course Allergies Allergies Coded Allergies Type Severity Reaction Last Updated Verified No Known Drug Allergies 04/10/21 No Vital Signs Vital Signs Date Time Temp Pulse Resp B/P (MAP) Pulse Ox O2 Delivery O2 Flow Rate FiO2 05/19/21 11:18 Room Air 05/19/21 09:40 94 05/19/21 09:00 72 134/74 05/19/21 07:00 98.3 16 98.3 05/19/21 05:40 2.0 Lab Results Laboratory Tests Test 05/18/21 12:22 05/19/21 07:35 Hemoglobin 10.6 g/dL (12.0-15.5) 9.5 g/dL (12.0-15.5) Hematocrit 33.3 % (36.0-47.0) 29.1 % (36.0-47.0) Mean Corpuscular Hemoglobin Concent 32 g/dL (31-37) 33 g/dL (31-37) Laboratory Tests Test 05/18/21 12:22 05/19/21 07:35 Hemoglobin 10.6 g/dL (12.0-15.5) 9.5 g/dL (12.0-15.5) Hematocrit 33.3 % (36.0-47.0) 29.1 % (36.0-47.0) Mean Corpuscular Hemoglobin Concent 32 g/dL (31-37) 33 g/dL (31-37) Brief Hospital Course Ms. Starr is a 60 old admti to OA left knee, torn ACL, operated, no comp. pain, weakness in post-op coure, she could not walk or transfer well on 05/18, delay dc to 05/19 Discharge Information Condition at Discharge: Improved Follow Up: Weeks Disposition/Orders: D/C to Home w/ HH Scheduled Aspirin (Aspirin Ec) 325 Mg Tablet., 325 MG PO BID for post surg, #60 Prescribed by: SILVERIO NIETO on 05/18/21 1149 Atenolol (Atenolol) 50 Mg Tablet, 1 TAB PO DAILY, #30 Ref 5 (Reported) Entered as Reported by: JOS LORD on 05/27/14 2251 Last Taken: Unknown Dose on 05/16/21 0530 Last Action: Continued on 05/17/21 0854 by SILVERIO NIETO Atorvastatin Calcium (Atorvastatin Calcium) 20 Mg Tablet, 20 MG PO HS for FOR CHOLESTEROL, #30 Ref 0 (Reported) Entered as Reported by: MANDY WHITFIELD on 03/14/211716 Last Taken: Unknown Dose on 05/15/21 Last Action: Continued on 05/16/211638 by GENO POWELL MD Hydrochlorothiazide (Hydrochlorothiazide Capsule ) 12.5 Mg Capsule, 12.5 MG PO DAILY for DIURETIC, Ref 0 (Reported) Entered as Reported by: SAUD DESIR on 04/12/21 1550 Last Taken: Unknown Dose on 05/15/21 Last Action: Last Taken Edited on 05/16/21635 by Shobha Akhtar Phentermine Hcl (Phentermine Hcl) 15 Mg Capsule, 15 MG PO DAILY for WEIGHT LOSS, (Reported) Entered as Reported by: MANDY WHITFIELD on 03/14/211716 Last Taken: Unknown Dose on 05/09/21 Last Action: Last Taken Edited on 05/16/21635 by Shobha Akhtar Potassium Chloride (Klor-Con 10) 10 Meq Tablet.er, 10 MEQ PO BID for treat low potassium level, (Reported) Entered as Reported by: MANDY WHITFIELD on 05/10/21 1609 Last Taken: Unknown Dose on 05/15/21 Last Action: Last Taken Edited on 05/16/21635 by Shobha Akhtar Trazodone Hcl (Trazodone Hcl) 100 Mg Tablet, 100 MG PO HS, (Reported) Entered as Reported by: REINALDO QUINTANA on 05/28/14 0121 Last Taken: Unknown Dose on 05/15/21 Last Action: Continued on 05/16/211638 by GENO POWELL MD Scheduled PRN Oxycodone/Apap 7.5-325 (Percocet 7.5-325 Mg Tablet ) 1 Each Tablet, 1 TAB PO PRN Q4HRS PRN for MODERATE TO SEVERE PAIN, #35 Prescribed by: SILVERIO NIETO on 05/19/21 1122 Sennosides/Docusate Sodium (Stool Softener-Stimulant Lax) 1 Each Tablet, 1 TAB PO BID PRN for prevent constipation, #60 Prescribed by: SILVERIO NIETO on 05/19/21 1121 Discontinued Medications Meloxicam (Meloxicam) 15 Mg Tablet, 15 MG PO 1X for , (Reported) Entered as Reported by: Shobha Akhtar on 05/16/21654 Last Taken: 15 on Unknown Date & Time Last Action: New Order on 05/16/21654 by Shobha Akhtar Patient Instructions Patient Instructions pt seen face to face total coordinatino time 34 mintues Justicifation of Admission Dx: Justifications for Admission: Justification of Admission Dx: Yes (for surg) SILVERIO NIETO MD May 19, 2021 11:26
--- NOTE | 2021-05-19 13:36 | NUR ---
patient discharged home with home health.
== END 2021-05-19 13:37 | disposition home health service (06) ==
LOC: SURG 06:05 → INTOOBSV 09:22 → 4 NORTH 09:22
PROVIDERS: ADMIT Internal Medicine; ATTEND Orthopaedic Surgery
DX: M17.12 Unilateral primary osteoarthritis, left knee (principal); S83.512A Sprain of anterior cruciate ligament of left knee, initial encounter; M23.612 Other spontaneous disruption of anterior cruciate ligament of left knee; I10 Essential (primary) hypertension; E78.5 Hyperlipidemia, unspecified; G47.00 Insomnia, unspecified; E66.9 Obesity, unspecified; K59.00 Constipation, unspecified; Z68.36 Body mass index [BMI] 36.0-36.9, adult; Z86.19 Personal history of other infectious and parasitic diseases; Z90.710 Acquired absence of both cervix and uterus; Z98.891 History of uterine scar from previous surgery; Z90.49 Acquired absence of other specified parts of digestive tract; Z79.899 Other long term (current) drug therapy; Z98.890 Other specified postprocedural states
CPT/HCPCS: 27447; 36415; 73560; 80053; 85014; 85018; 86850; 86900; 86901; 88305; 88311; 96365; 96366; 96375; 96376; 97110; 97116; 97162; 97166; 97530; 97535; A4213; A4930; A6253; A6258; A6450; A6550; C1713; C1776; G0238; G0378; G0379; J0171; J0690; J1100; J1170; J1885; J2270; J2405; J2704; J2795; J3010; A4223; A6454; J3370

== ENCOUNTER → 2021-07-19 | Outpatient (CLI) | payer OTHER ==
[~2021-07-19] MED LIST changes: -ACETAMINOPHEN 500 MG TABLET PO PRN; +ASPI325T11 PO; +DEXAMETHASONE PRES.FREE 10 MG/ML VIAL. ONE; -GABAPENTIN 300 MG CAPSULE. PO PRN; +IOHEXOL 180 MG/ML 10 ML VIAL. ONE; -IV RINGERS,LACTATED 1000ML 1,000 ML IV SCH; +MELO15TA23 PO; -MELOXICAM 7.5 MG TABLET PO PRN; +OXYC1TAB19 PO; -PROCHLORPERAZINE 10 MG/2 ML VIAL. IVP PRN; +SENN-209 PO; -TRANEXAMIC ACID 1,000 MG in IV NS 50ML -- 1ST BAG INJ ONE; -TV=62ml MORPHINE 5 MG, KETOROLAC 30 MG, ROPIV, EPI INT ART ONE; -fentaNYL PF VIAL 100 MCG/2 ML VIAL IVP PRN
--- NOTE | 2021-07-19 12:59 | PDOC ---
Progress Note - Pain Clinic Date of Service: DOS: DATE: 07/19/21 TIME: 12:56 Diagnosis: Dx: Thoracic radiculopathy with thoracic degenerative disc disease History or Present Illness: HPI: 60-year-old female returns for follow-up last seen October 25, 2020 patient did very well after thoracic epidural steroid injection about 80% improvement for several months following, patient reports the pain is returning now but is slightly lower in the back and also some low back pain on the right side which is new noticeable after she had left knee surgery and was walking doing rehab and favoring her left lower extremity during that time and still to some extent. Patient reports her pain is a 10 on scale 10 is worse over the past week 8 on average 4 to [place] is a 4 today patient report is aching some sharp pain in the back as well radiating to the right and left side in the mid back patient reports is worse with walking standing changing positions better with sitting or laying down but is awakened from sleep now for about a month about every 4 hours. Patient reports again increased pain in the low back which is more problematic currently. Patient reports no bowel or bladder incontinence. Physical Exam: VS: Blood pressure is 167/93 pulse 68 respirations 18 temperature 90.40 Fahrenheit height 5 feet 6 inches weight is 210 pounds. PE: PHYSICAL EXAMINATION: GENERAL: The patient is awake, alert, oriented, appropriate, very pleasant in demeanor HEENT: Shows normocephalic, atraumatic. Extraocular movements are intact and symmetrical. NECK: Shows anterior throat supple without palpable lymphadenopathy noted. Swal low reflex symmetrical. CHEST: Shows normal on inspection. Breath sounds are clear bilaterally. HEART: Shows S1, S2 clear. No murmurs auscultated. ABDOMEN: Soft, nontender, nondistended. No palpable organomegaly is noted. BACK: Shows spine grossly in the midline. Normal-appearing cervical lordotic curvature. There is slightly increased thoracic kyphosis, some minor flattening of the lumbar lordotic curvature. Lumbar paraspinous muscles show symmetrical on inspection, on palpation shows some moderate tenderness diffusely throughout the upper, middle and lower distribution of the paraspinous muscles, without specific trigger points, without radiation of pain. The patient has good rotational motion of the lumbar spine, both laterally as well as extension and flexion without significant difficulty. Mild tenderness over the right posterior superior iliac spine and right sacroiliac region but without radiation. Left side is nontender. EXTREMITIES: Lower extremities show deep tendon reflexes 2+ in the patellar and tendo calcaneus tendons. Motor exam is 5 on a scale of 5 with right dorsiflexion, extension, quadriceps and hamstring flexion and 5/5 on the left. Peripheral pulses are 1+ posterior tibial. No peripheral edema is noted bilaterally. Lower extremities are warm and dry to touch, equal in color and appearance. SKIN: Shows warm and dry, good turgor. No edema. No sores, rashes or bruising throughout. Procedure: Procedure: Options were discussed with patient. Patient's old chart was reviewed as her current medication regimen updated current review of systems updated today as well. We will proceed with a thoracic epidural steroid injection today with fluoroscopic guidance. Risks were discussed including but not limited to: Bleeding, infection, possibility of epidural hematoma and subsequent neurological compromise, dural puncture, headaches, spinal cord and/or nerve damage, side effects of steroid medication, and poor results regarding pain control. Patient understands and wished to proceed. Patient will return to the clinic in approximately 4 weeks for follow-up, was counseled as to return appointment, activity level, and side effect to be aware of. Patient was encouraged to maintain stretching strength exercise with the low back especially the right hip and showed some stretching exercises for the right sacroiliac joint as well. Medication Injected: Med Injected: Procedure is thoracic epidural steroid injection under local anesthetic using sterile prep and drape at the T9-10 level using C-arm fluoroscopic guidance in both AP and lateral views medications injected is 20 mg dexamethasone +10mL preservative-free normal saline and 2 mL contrast- condition at discharge is stable patient tolerated procedure well had no complications. Condition at Discharge: Condition at Discharge: Condition at discharge is stable, patient Carlos Alberto the procedure well and had no complications. NADER KOEHLER MD Jul 19, 2021 12:59
--- NOTE | 2021-07-19 13:00 | PDOC4 ---
Procedure Note: ICD 10 Code: ICD 10 Code: M54.14 M51.34 Procedure Note: Patient was consented for thoracic epidural steroid injection fluoroscopic guidance. Risks were discussed including but not limited to: Bleeding, infection, possibility of epidural hematoma and subsequent neurological compromise, dural puncture, headaches, spinal cord and/or nerve damage, side effects of steroid medication, and poor results regarding pain control. Patient understands and wished to proceed. Procedure is thoracic epidural steroid injection under local anesthetic using sterile prep and drape at the T9-10 level using C-arm fluoroscopic guidance in both AP and lateral views medications injected is 20 mg dexamethasone +10mL preservative-free normal saline and 2 mL contrast- condition at discharge is stable patient tolerated procedure well had no complications. NADER KOEHLER MD Jul 19, 2021 13:00
== END | disposition home or self-care (01) ==
LOC: PNCL 10:55
PROVIDERS: ATTEND Anesthesiology
DX: M51.14 Intervertebral disc disorders with radiculopathy, thoracic region (principal); I10 Essential (primary) hypertension; E78.00 Pure hypercholesterolemia, unspecified; J45.909 Unspecified asthma, uncomplicated; E66.9 Obesity, unspecified; M19.90 Unspecified osteoarthritis, unspecified site; Z98.51 Tubal ligation status; Z90.710 Acquired absence of both cervix and uterus; Z79.82 Long term (current) use of aspirin; Z79.899 Other long term (current) drug therapy; Z98.890 Other specified postprocedural states
CPT/HCPCS: 62321; J1100; Q9965